=== PATIENT | male | born 1965 | race Caucasian/White ===

== ENCOUNTER → 2020-06-14 13:30 | Outpatient (BNVA) | payer BC, SELFPAY | PROVIDERS: PCP Student in an Organized Health Care Education/Training Program; Referring Provider Student in an Organized Health Care Education/Training Program; Visit Provider Nurse Practitioner Family | DX: Z76.89 Persons encountering health services in other specified circumstances (principal) ==

== ENCOUNTER 2020-06-15 10:17 | Outpatient (REF) | payer BC, SELFPAY ==
[2020-06-15 10:47] LABS: Hematocrit 45.9 % (42-52); Hemoglobin 14.5 g/dl (14.0-18.0); Mean Corpuscular HGB Conc 31.6 g/dl (31.0-36.0); Mean Corpuscular Volume 91.8 fL (80-98); Mean Platelet Volume 10.4 fL (9.4-12.4); Platelet Count 223 X10*3/uL (160-400); Red Cell Distribution Width 12.6 % (11.0-16.0); White Blood Count 6.3 X10*3/uL (4.8-10.8)
[2020-06-15 11:12] LABS: Alanine Aminotransferase 27 U/L (0-40); Albumin Level 4.2 g/dL (3.5-5.0); Alkaline Phosphatase 77 U/L (39-117); Anion Gap 13 (12-20); Aspartate Amino Transferase 15 U/L (5-37); Blood Urea Nitrogen 19 mg/dL (9-16); Carbon Dioxide 30 mmol/L (22-29); Chloride 99 mmol/L (96-108); Estimated Glomerular Filt Rate > 60; Glucose Random 345 mg/dL (60-115); Potassium 4.5 mmol/l (3.3-5.1); Sodium 137 mmol/L (135-145); Total Protein 6.5 g/dL (6.5-8.0)
== END 2020-06-15 10:18 | disposition home or self-care (01) ==
LOC: HO.LAB 10:17
PROVIDERS: PCP Student in an Organized Health Care Education/Training Program; Visit Provider Nurse Practitioner Family
DX: Z12.11 Encounter for screening for malignant neoplasm of colon (principal)
CPT/HCPCS: 36415; 80053; 85027

== ENCOUNTER 2020-08-13 06:51 | Day surgery (SDC) | payer BC, SELFPAY ==
[2020-08-02 14:40] VITALS: BMI 30.4
--- NOTE | 2020-08-12 10:02 | P.CONAN_ITS ---
HPI - Anesthesia Eval Consult details Narrative: 54yo M for Colonoscopy [facility] Past Medical History Medical History Diabetes mellitus History of 2019 novel coronavirus disease (COVID-19) HTN (hypertension) Hypercholesteremia Family History Family History Father Diabetes Mother No problems noted. Surgical History Surgical History Hx of vasectomy Social History Social History Household Members: Significant Other Alcohol intake: current Alcohol intake frequency: holidays/special occasions only Smoking Status: Never smoker Use of substances other than those prescribed or required for medical reasons: No Advance Directives: No Advance Directives Information Provided: No Advance Directives on File: No Meds Allergies Allergy/AdvReac Type Severity Reaction Status Date / Time No Known Allergies Allergy Verified 06/14/20 13:32 Home Medications Medication Instructions Recorded Confirmed Type aspirin 81 mg tablet,delayed 81 mg PO DAILY 06/14/20 08/02/20 History release glipizide 10 mg tablet 10 mg PO TID tab 06/14/20 08/02/20 History insulin glargine 100 unit/mL 10 unit SUBCUT QPM 06/14/20 08/02/20 History subcutaneous solution lisinopril 10 mg tablet 10 mg PO DAILY 06/14/20 08/02/20 History metformin 1,000 mg tablet 1,000 mg PO BID 06/14/20 08/02/20 History simvastatin 20 mg tablet 20 mg PO BEDTIME 06/14/20 08/02/20 History Exam Exam Date and Time: August 12, 2020 1002 Height,Weight and Vital Signs: Height 5 ft 5 in Weight 83.007 kg Pertinent Lab Results Pertinent Lab Results: Laboratory Tests 06/15/20 06/15/20 10:29 10:29 WBC 6.3 Hgb 14.5 Hct 45.9 Plt Count 223 Sodium 137 Potassium 4.5 Chloride 99 Carbon Dioxide 30 H BUN 19 H Creatinine 0.87 Assessment and Plan Assessment Anesthesia Assessment: Chart Reviewed
[2020-08-13 08:06] VITALS: BP 135/85; PULSE 83; RESP 18; TEMP 36.1; O2SAT 99
[2020-08-13 08:09] LABS: Glucose, Whole Blood 175 mg/dL (60-115)
[2020-08-13] MEDS: Lactated Ringers 1,000 ML 100 ML IVCONT (08:29)
--- NOTE | 2020-08-13 08:30 | P.OP_ITS ---
Operative Note Operative Note Date of Service: 08/13/20 Narrative: Pre-op diagnosis: Colon cancer screening Post-op diagnosis: other (Diverticulosis, hemorrhoids) Procedure: COLONOSCOPY TILL CECUM Consent: Indications for the procedure and potential complications of bleeding, perforation, reaction to medications and missed diagnosis were discussed with the patient and informed consent was obtained. Instrument: Olympus PCF H 190 L variable stiffness pediatric colonoscope Monitoring: Vital signs and clinical assessment, intermittent blood pressure monitoring, continuous EKG monitoring, Pulse oximetry and Carbon Dioxide monitoring were done throughout the procedure. Colon withdrawl time was 25 minutes. Procedure: The patient was placed in the left lateral decubitis position and pre-procedure medications were administered. After a digital rectal examination of the ano-rectum, the video colonoscope was inserted into the rectum and advanced through the colon to the cecum. The colonoscope was slowly withdrawn in a retrograde panoramic fashion and the colon mucosa was carefully examined including a retroflexed view of the rectum. Findings and interventions are described below. Procedure Difficulty: Without difficulty Findings: Terminal Ileum: Not evaluated Cecum: Normal Ascending Colon: Normal Transverse Colon: Normal Descending Colon: Normal Sigmoid Colon: Moderate diverticulosis Rectum: Normal Ano-rectum: Moderate internal hemorrhoids Colon preparation: Good after some irrigation Impression and Post Procedure Diagnosis: Colonoscopy Findings: No polyps were detected. Moderate diverticulosis seen in the sigmoid colon Moderate hemorrhoids on retroflexed exam. Plan: Patient has an appointment on 08/30/20 in the [facility] with Marilu Underwood FNP- BC. Repeat Colonoscopy in 10 years. Above findings were reviewed with the patient and diverticulosis handout was given in the discharge area Surgeon: Jackelyn Norton MD Anesthesia: MAC (Dr Rwoe & Dr Barrett) Estimated blood loss (mL): 0 Pathology: none sent Condition: stable Disposition: PACU
--- NOTE | 2020-08-13 08:30 | MHC.SHP ---
Pre-Procedural Eval Section A The patient is an INPATIENT: No The History & Physical has been completed within 30 days and I have reviewed it.: No Section B Chief Complaint: screening Details of Present Illness: 54 years old male here today for pre-colonoscopy screening, This is his first colonoscopy. He was scheduled for one couple years ago however never had one done. Patient reports that he has been feeling well. He denies any abdominal pain, discomfort, bloating, diarrhea, constipation, melena, nausea or vomiting. Denies any CP, PND, SOB with or without exertion. Denies any sleep apnea or any other respiratory issues. Reports that he is a diabetic and has no issues takes his medications as prescribed. Denies any family history of colon cancer. Denies having any surgeries, except for dental minor surgeries with local anesthesia use. Patient has no allergies,never had any infectious diseases like hepatitis A, B HIV or tuberculosis. Relevant Family History (Specify if Yes): No Relevant Social History: None Present Medications: see Short Stay Collaborative assessment Medical History: Significant History (Diabetes mellitus HTN (hypertension) Hypercholesteremia) Allergies: Allergies Allergy/AdvReac Type Severity Reaction Status Date / Time No Known Allergies Allergy Verified 06/14/20 13:32 Review of Systems Sugical H&P ROS: Negative: Constitution, Cardiovascular, Respiratory and Gastrointestinal Exam Surgical H&P Exam: Normal: Heart, Normal: Lungs, Normal: Extremities and Normal: Abdomen Plan Diagnosis/Plan: Unchanged I have reviewed the history and physical and performed a pertinent physical examination on my patient. No changes have occurred unless specified.
--- NOTE | 2020-08-13 08:31 | P.CONAN_ITS ---
[facility] Past Medical History Medical History Diabetes mellitus History of 2019 novel coronavirus disease (COVID-19) HTN (hypertension) Hypercholesteremia Family History Family History Father Diabetes Mother No problems noted. Surgical History Surgical History Hx of vasectomy Social History Social History Household Members: Significant Other Alcohol intake: current Alcohol intake frequency: holidays/special occasions only Smoking Status: Never smoker Use of substances other than those prescribed or required for medical reasons: No Advance Directives: No Advance Directives Information Provided: No Advance Directives on File: No Meds Allergies Allergy/AdvReac Type Severity Reaction Status Date / Time No Known Allergies Allergy Verified 06/14/20 13:32 Home Medications Medication Instructions Recorded Confirmed Type aspirin 81 mg tablet,delayed 81 mg PO DAILY 06/14/20 08/02/20 History release glipizide 10 mg tablet 10 mg PO TID tab 06/14/20 08/02/20 History insulin glargine 100 unit/mL 10 unit SUBCUT QPM 06/14/20 08/02/20 History subcutaneous solution lisinopril 10 mg tablet 10 mg PO DAILY 06/14/20 08/02/20 History metformin 1,000 mg tablet 1,000 mg PO BID 06/14/20 08/02/20 History simvastatin 20 mg tablet 20 mg PO BEDTIME 06/14/20 08/02/20 History Exam Exam Date and Time: August 13, 2020830 Height,Weight and Vital Signs: Height 5 ft 5 in Weight 83.007 kg Last Vital Signs Temp 97.0 F 08/13/20 08:06 Pulse 83 08/13/20 08:06 Resp 18 08/13/20 08:06 BP 135/85 08/13/20 08:06 Pulse Ox 99 08/13/20 08:06 Pertinent Lab Results Pertinent Lab Results: Laboratory Tests 08/13/20 08:03 POC Glucose 175 H Airway Mallampati Class: I TM Dist: >3cm Neck ROM: Full Heart: RRR Lungs: CTA
[2020-08-13 09:27] VITALS: BP 104/70; PULSE 76; RESP 16; TEMP 36.2; O2SAT 93
[2020-08-13 09:29] VITALS: O2SAT 95
[2020-08-13 09:42] VITALS: BP 123/91; PULSE 83; RESP 18; O2SAT 99
[2020-08-13 09:50] VITALS: BP 122/51; PULSE 78; RESP 18; O2SAT 100
--- NOTE | 2020-08-14 09:47 | HO.POSTANES ---
Post Anesthesia Evaluation Post Anesthesia Evaluation Anesthesia: Monitored Mental Status: Awake Pain Control: Satisfactory Nausea/Vomiting: None Hydration: Adequate Anesthesia-Related Issues: No Anes. Related Issues
== END 2020-08-13 10:25 | disposition home or self-care (01) ==
PROVIDERS: PCP Student in an Organized Health Care Education/Training Program; Visit Provider Internal Medicine Gastroenterology
PROC: 0DJD8ZZ Inspection of Lower Intestinal Tract, Via Natural or Artificial Opening Endoscopic (ICD-10-PCS; CPT 45378; principal; 2020-08-13 08:40)
DX: Z12.11 Encounter for screening for malignant neoplasm of colon (principal); K57.30 Diverticulosis of large intestine without perforation or abscess without bleeding; K64.8 Other hemorrhoids; I10 Essential (primary) hypertension; E11.9 Type 2 diabetes mellitus without complications; Z86.19 Personal history of other infectious and parasitic diseases; Z79.4 Long term (current) use of insulin; Z79.82 Long term (current) use of aspirin; Z79.899 Other long term (current) drug therapy
CPT/HCPCS: 45378; 82947

== ENCOUNTER → 2020-08-30 14:11 | Outpatient (BNVA) | payer BC, SELFPAY | PROVIDERS: PCP Student in an Organized Health Care Education/Training Program; Visit Provider Nurse Practitioner Family | DX: Z76.89 Persons encountering health services in other specified circumstances (principal) ==

== ENCOUNTER → 2020-09-27 14:47 | Outpatient (BNVA) | payer BC, SELFPAY | PROVIDERS: PCP Student in an Organized Health Care Education/Training Program; Visit Provider Nurse Practitioner Family ==

== ENCOUNTER 2023-04-08 08:01 | Outpatient (REF) | payer BC, SELFPAY ==
--- NOTE | ~2023-04-08 | CT_ITS ---
EXAMINATION: CT ABDOMEN WITH CONTRAST CLINICAL INFORMATION: Left upper quadrant pain. COMPARISON: Abdominal ultrasound dated 10/22/2005. TECHNIQUE: Contiguous axial thin section helical images of the abdomen were performed following the administration of oral contrast and mL of Omnipaque 350 intravenous contrast. The data set was reformatted in the coronal and sagittal planes and reviewed on an independent workstation. This CT examination was performed using dose optimization techniques as appropriate, variously including the following: *Automated exposure control *Adjustment of mA and/or kV according to patient size (this includes techniques or standardized protocols for targeted exams where dose is matched to indication/reason for exam; i.e. extremities or head) *Use of iterative reconstruction technique DLP: 242 mGy-cm FINDINGS: LUNG BASES: The lung bases are grossly clear. LIVER, GALLBLADDER, BILIARY TREE: The liver is normal in size, shape, and attenuation. No focal hepatic lesion or biliary ductal dilatation is present. The gallbladder is unremarkable with no evidence of radiopaque gallstones, gallbladder wall thickening, or pericholecystic inflammatory changes. PANCREAS: Unremarkable. SPLEEN: Unremarkable. ADRENAL GLANDS: Unremarkable. KIDNEYS AND URETERS: The kidneys are normal in size, shape, and attenuation. No hydronephrosis or hydroureter or calculi seen. No perinephric stranding. GASTROINTESTINAL TRACT: The small and large bowel are unremarkable. The vermiform appendix is not included in the [id number]. ABDOMINAL WALL: There is a small fat-containing umbilical hernia. LYMPH NODES: Normal. VASCULAR: Unremarkable. OSSEOUS STRUCTURES: There is multi-level marked thoracolumbar spondylosis, with an appearance suggesting possible DISH (diffuse idiopathic skeletal hyperostosis). No acute or aggressive osseous abnormality is seen. CT/CT abdomen w IV con IMPRESSION: 1. No bowel obstruction, free intraperitoneal air or abscess is seen within the upper abdomen. 2. There is no abdominal mass, free fluid lymphadenopathy. 3. No urinary calculus or obstruction is seen within the upper abdomen. 4. There is a small fat-containing umbilical hernia. 5. Skeletal findings suggest possible DISH. Fleischner Society guidelines were followed.
[2023-04-08] MEDS: iohexoL 350 MG/ML 75 ML INFUS..BTL 85 ML IV (10:03)
[2023-04-09 07:16] LABS: Creatinine POC 0.6 mg/dL (0.5-1.4); GFR POC > 60
== END 2023-04-08 08:02 | disposition home or self-care (01) ==
LOC: HO.CT 08:01
PROVIDERS: PCP Family Medicine; Visit Provider Family Medicine
DX: R10.12 Left upper quadrant pain (principal)
CPT/HCPCS: 74160; 82565; Q9967

== ENCOUNTER 2023-07-02 08:50 | Outpatient (REF) | payer BC, SELFPAY ==
[2023-07-02 14:32] LABS: MANUAL DIFF FLAG NO
[2023-07-02 14:38] LABS: Basophils Percent Auto 0.6 % (0-2); Eosinophils Absolute Auto 0.1 X10*3/uL (0.0-0.4); Eosinophils Percent Auto 0.9 % (0-4); Hematocrit 47.1 % (42.0-52.0); Hemoglobin 15.2 g/dl (14.0-18.0); Imm Gran Abs Auto 0.03 X10*3/uL (0.00-0.03); Imm Gran Pct Auto 0.4 % (0.0-0.4); Lymphocytes Absolute Auto 2.1 X10*3/uL (1.2-4.9); Mean Corpuscular HGB Conc 32.3 g/dl (31.0-36.0); Mean Corpuscular Hemoglobin 28.8 pg (27.0-33.0); Mean Corpuscular Volume 89.2 fL (80.0-98.0); Mean Platelet Volume 10.3 fL (9.4-12.4); Monocytes Absolute Auto 0.5 X10*3/uL (0.1-1.2); Monocytes Percent Auto 7.7 % (2-11); Neutrophils Absolute Auto 4.1 x10*3/uL (2.0-8.3); Neutrophils Percent Auto 60.4 % (45-73); Platelet Count 266 X10*3/uL (160-400); Red Blood Count 5.28 X10*6/uL (4.60-5.80); White Blood Count 6.8 X10*3/uL (4.8-10.8)
[2023-07-02 15:05] LABS: Alanine Aminotransferase 27 U/L (0-40); Albumin Level 4.3 g/dL (3.5-5.0); Alkaline Phosphatase 60 U/L (39-117); Anion Gap 12 (12-20); Aspartate Amino Transferase 17 U/L (5-37); Bilirubin Total 1.2 mg/dL (0.0-1.0); Blood Urea Nitrogen 14 mg/dL (9-16); Calcium 10.1 mg/dL (8.4-10.2); Carbon Dioxide 28 mmol/L (22-29); Chloride 104 mmol/L (96-108); Cholesterol 131 mg/dL (<200); Estimated Glomerular Filt Rate > 60; Glucose Random 115 mg/dL (60-115); HDL Cholesterol 54 mg/dL (>40); LDL Cholesterol Calculated 64 mg/dL (<100); Sodium 140 mmol/L (135-145); Total Protein 7.3 g/dL (6.5-8.0); Triglycerides 66 mg/dL (<150)
[2023-07-02 15:26] LABS: Creatinine Urine 144.21 mg/dL; Microalbum/Creatinine Ratio Ur 5.5 ug/mg cr (<30)
[2023-07-02 15:38] LABS: Folate 12.5 ng/mL (> or = 4.0); Vitamin B12 269 pg/mL (200-900)
[2023-07-03 03:31] LABS: HIV AB/AG Nonreactive (Nonreactive); HIV Num 1 0.06 S/CO (0.00-0.99); ~HepC Num1 0.11 S/CO (0.00-0.79); ~Hepatitis C Antibody Nonreactive (Nonreactive)
== END 2023-07-02 08:51 | disposition home or self-care (01) ==
LOC: HO.CHCLDS 08:50
PROVIDERS: Visit Provider Family Medicine
DX: E11.9 Type 2 diabetes mellitus without complications (principal); Z79.4 Long term (current) use of insulin; Z13.9 Encounter for screening, unspecified
CPT/HCPCS: 36415; 80053; 80061; 82043; 82570; 82607; 82746; 85025; 86803; 87389

== ENCOUNTER 2023-11-12 10:22 | Outpatient (REF) | payer BC, SELFPAY ==
[2023-11-15 08:30] LABS: HBS Num1 0.16 mIU/mL (0-7.99); ~Hepatitis B Surface Antibody NONREACTIVE (Nonreactive)
== END 2023-11-12 10:23 | disposition home or self-care (01) ==
LOC: HO.CHCLDS 10:22
PROVIDERS: Visit Provider Family Medicine
DX: E11.9 Type 2 diabetes mellitus without complications (principal); Z79.4 Long term (current) use of insulin
CPT/HCPCS: 36415; 86706

== ENCOUNTER 2024-05-26 09:48 | Outpatient (REF) | payer BC, SELFPAY ==
[2024-05-26 14:11] LABS: MANUAL DIFF FLAG NO
[2024-05-26 14:15] LABS: Basophils Absolute Auto 0.1 X10*3/uL (0.0-0.2); Basophils Percent Auto 0.8 % (0-2); Eosinophils Absolute Auto 0.1 X10*3/uL (0.0-0.4); Eosinophils Percent Auto 1.5 % (0-4); Hematocrit 47.6 % (42.0-52.0); Hemoglobin 15.5 g/dl (14.0-18.0); Imm Gran Abs Auto 0.05 X10*3/uL (0.00-0.03); Imm Gran Pct Auto 0.8 % (0.0-0.4); Lymphocytes Absolute Auto 2.1 X10*3/uL (1.2-4.9); Mean Corpuscular HGB Conc 32.6 g/dl (31.0-36.0); Mean Corpuscular Hemoglobin 29.4 pg (27.0-33.0); Mean Corpuscular Volume 90.3 fL (80.0-98.0); Mean Platelet Volume 10.1 fL (9.4-12.4); Monocytes Absolute Auto 0.5 X10*3/uL (0.1-1.2); Monocytes Percent Auto 8.9 % (2-11); Neutrophils Absolute Auto 3.2 x10*3/uL (2.0-8.3); Platelet Count 282 X10*3/uL (160-400); Red Blood Count 5.27 X10*6/uL (4.60-5.80); White Blood Count 6.1 X10*3/uL (4.8-10.8)
[2024-05-26 14:50] LABS: Alanine Aminotransferase 29 U/L (0-40); Albumin Level 4.5 g/dL (3.5-5.0); Alkaline Phosphatase 61 U/L (39-117); Anion Gap 10 (12-20); Aspartate Amino Transferase 18 U/L (5-37); Blood Urea Nitrogen 14 mg/dL (9-16); Calcium 10.4 mg/dL (8.4-10.2); Carbon Dioxide 31 mmol/L (22-29); Chloride 102 mmol/L (96-108); Cholesterol 175 mg/dL (<200); Estimated Glomerular Filt Rate > 60; Glucose Random 136 mg/dL (60-115); HDL Cholesterol 61 mg/dL (>40); LDL Cholesterol Calculated 99 mg/dL (<100); Potassium 4.5 mmol/L (3.3-5.1); Sodium 138 mmol/L (135-145); Total Protein 7.3 g/dL (6.5-8.0); Triglycerides 79 mg/dL (<150)
[2024-05-26 15:08] LABS: Folate 11.2 ng/mL (> or = 4.0); Vitamin B12 373 pg/mL (200-900)
== END 2024-05-26 09:49 | disposition home or self-care (01) ==
LOC: HO.CHCLDS 09:48
PROVIDERS: Visit Provider Family Medicine
DX: E11.9 Type 2 diabetes mellitus without complications (principal); Z79.4 Long term (current) use of insulin
CPT/HCPCS: 36415; 80053; 80061; 82607; 82746; 84443; 85025

== ENCOUNTER 2025-04-12 12:00 | Outpatient (REF) | payer OTHER, SELFPAY ==
--- OUTSIDE RECORDS SUMMARY | 2025-04-12 11:30 | XMS_ITS | Encounter Summary ---
Author Organization [employer] Address [address] [place] [address] [address] [place] [address] Care Team Providers Care Acoustic Intelligence Specialist Name Role Phone Gema Barber MD Primary Care Provider [phone] Reason for Referral * Consultation (Routine) - Authorized Specialty Diagnoses / Procedures Referred By Delia goldman Referred To Contact Optometry Diagnoses Type 2 diabetes mellitus without complication, with long-term current use of insulin (CMS/HCC) Gema Barber MD [address] [place] [address] Phone: tel: fax: [facility] OPTOMETRY [address] [place] [address] Phone: tel: fax: Referral ID Status Reason Start Date Expiration Date Visits Requested Visits Authorized [id number] Authorized Consult and Treat 04/12/2025 04/12/2026 1 1 * Medications - Closed Specialty Diagnoses / Procedures Referred By Delia t Referred To Contact Diagnoses Type 2 diabetes mellitus without complication, with long-term current use of insulin ([facility]) Gema Barber MD [address] [place] [address] Phone: tel: fax: Referral ID Status Reason Start Date Expiration Date Visits Re quested Visits Authorized [id number] Closed 1 1 * Consultation (Routine) - Authorized Specialty Diagnoses / Procedures Referred By Contac t Referred To Contact Dermatology / Family Medicine Diagnoses Gema Jain MD [address] [place] [address] Phone: tel: fax: Rosendo Garrison MD [address] [place] [address] Phone: tel: fax: Referral ID Status Reason Start Date Expiration Date Visits Requested Visits Authorized [id number] Authorized Consult and Treat 04/12/2025 04/12/2026 1 1 Encounter Details Date Type Department Care Team (Late st Contact Info) Description 04/12/2025 11:30 AM EDT Office Visit [facility] MED [facility] PEDS [address] [place] [address] Gema Barber MD [address] [place] [address] Type 2 diabetes mellitus without complication, with long-term current use of insulin (CMS/HCC) (Primary Dx); Boils of multiple sites; Rash Social History Tobacco Use Types Packs/Day Years Used Date Smoking Tobacco: Never Passive Smoke Exposure: Never Smokeless Tobacco: Never Alcohol Use Standard Drinks/Week Comments Never 0 (1 standard drink = 0.6 oz pur e alcohol) Alcohol Answer Date Recorded Frequency of Alcohol Consumption Not on file 05/26/2024 Average Number of Drinks Not on file 024 Frequency of Binge Drinking Not on file 05/16 Score 0 05/26/2024 Depression Answer Date Recorded Patient Health Questionnaire-9 Score 0 04/12/2025 Patient Health Questionnaire-9 Score 0 04/12/2025 Last PHQ-9: Questionnaire Data Not on file 0 04/12/2025 Housing Stability Answer Date Recorded What is your housing situation today? I have arely whalen 04/12/[address] you li ve. Do you have problems with any of the following? None of the above 04/12/2025 Food Insecurity Answer Date Recorded Within the past 12 months, y ou worried that your food would run out before you got money to buy more: Never True 04/12/2025 Within the past 12 months,th e food you bought just didn't last and you didn't have enough money to get more: Never True Transportation Answer Date Recorded In the past 12 months, has l ack of transportation kept you from medical appts, meetings, work or from getting things needed for daily living? No 04/12/2025 Utilities Answer Date Recorded In the past 12 months, has t he electric, gas, oil or water company threatened to shut off services in your home? No 04/12/2025 Depression Answer Date Recorded Patient Health Questionnaire-2 Score 0 04/12/2025 Internet Access Answer Date Recorded Internet Access Q1 Yes 04/12/2025 Internet Access Q2 Not on file 04/12/2025 Sex and Gender Information Value Date Recorded Sex Assigned at Male 06/15/2022 10:17 AM EDT Legal Sex Male 10:17 AM EDT Gender Identity Male 06/15/2022 10:17 AM EDT Sexual Orientation Straight 03/19/2023 8: 20 AM EDT documented as of this encounter Functional Status * Over the past 2 weeks, how often have you been bothered by any of the following problems? Question Answer Date of Assessment Author Patient Health Questionnaire -2 Score 0 04/12/2025 11:22 AM EDT Steven Rendon MA * Little interest or pleasure in doing things Answer Date of Assessment Author Not at all 04/12/2025 11:22 AM EDT Steven Rendon MA * Feeling down, depressed, or hopeless Answer Date of Assessment Author Not at all 04/12/2025 11:22 AM EDT Steven Rendon MA * Trouble falling or staying asleep, or sleeping too much Answer Date of Assessment Author Not at all 04/12/2025 11:22 AM EDT Steven Rendon MA * Feeling tired or having little energy Answer Date of Assessment Author Not at all 04/12/2025 11:22 AM EDT Steven Rendon MA * Poor appetite or overeating Answer Date of Assessment Author Not at all 04/12/2025 11:22 AM EDT Steven Rendon MA * Feeling bad about yourself - or that you are a failure or have let yourself or your family down Answer Date of Assessment Author Not at all 04/12/2025 11:22 AM EDT Steven Rendon MA * Trouble concentrating on things, such as reading the newspaper or watching television Answer Date of Assessment Author Not at all 04/12/2025 11:22 AM EDT Steven Rendon MA * Moving or speaking so slowly that other people could have noticed? Or the opposite - being so fidgety or restless that you have been moving around a lot more than usual. Answer Date of Assessment Author Not at all 04/12/2025 11:22 AM EDT Steven Rendon MA * Thoughts that you would be better off or hurting yourself in some way Answer Date of Assessment Author Not at all 04/12/2025 11:22 AM EDT Steven Rendon MA * Patient Health Questionnaire-9 Score Answer Date of Assessment Author 0 04/12/2025 11:22 AM EDT Steven Rendon MA documented as of this encounter Plan of Treatment Upcoming Encounters Date Type Department Care Team (Late st Contact Info) Description 06/05/2025 10:30 AM EDT Office Visit [facility] MED & PEDS [address] [place] [address] Rosendo Garrison MD [address] [place] [address] 06/22/2025 9:00 AM EST Office Visit [facility] MED & PEDS [address] [place] [address] Gema Barber MD [address] [place] [address] Scheduled Orders Name Type Priority Associated Diagnoses Orde r Schedule MRSA Nasal Screen Microbiology Routine Boils of multiple sites Expected: 04/12/2025 (Approximate), Expires: 04/12/2026 CBC auto differential Lab Routine Type 2 diabetes mellitus without complication, with long-term current use of insulin ([facility]) Expected: 04/12/2025 (Approximate), Expires: 04/12/2026 Comprehensive Metabolic Panel Lab Routine Type 2 diabetes mellitus without complication, with long-term current use of insulin ([facility]) Expected: 04/12/2025 (Approximate), Expires: 04/12/2026 Lipid Panel, Standard Lab Routine Type 2 diabetes mellitus without complication, with long-term current use of insulin (CMS/HCC) Expected: 04/12/2025 (Approximate), Expires: 04/12/2026 Albumin, Random Urine W/Creatinine Lab Routine Type 2 diabetes mellitus without complication, with long-term current use of insulin ([facility]) Expected: 04/12/2025 (Approximate), Expires: 04/12/2026 Vitamin B12 (Cobalamin) and Folate Panel, Serum Lab Routine Type 2 diabetes mellitus without complication, with long-term current use of insulin ([facility]) Expected: 04/12/2025 (Approximate), Expires: 04/12/2026 TSH W/Reflex to FT4 Lab Routine Type 2 diabetes mellitus without complication, with long-term current use of insulin ([facility]) Expected: 04/12/2025 (Approximate), Expires: 04/12/2026 Scheduled Referrals Name Type Priority Associated Diagnoses Orde r Schedule [facility] Referral Routine Rash Expected: 04/12/2025 (Approximate), Expires: 04/12/2026 Referral to [facility] Eye Care Outpatient Referral Routine Type 2 diabetes mellitus without complication, with long-term current use of insulin ([facility]) Expected: 04/12/2025 (Approximate), Expires: 04/12/2026 documented as of this encounter Procedures Procedure Name Priority Date/Time Associated Diagnosis Comments POCT GLYCATED HEMOGLOBIN, TOTAL Routine 04/12/2025 11:49 AM EDT Type 2 diabetes mellitus without complication, with long-term current use of insulin ([facility]) POCT GLUCOSE Routine 04/12/2025 11:46 AM EDT Type 2 diabetes mellitus without complication, with long-term current use of insulin ([facility]) documented in this encounter Results * (ABNORMAL) POCT HGB A1C (04/12/2025 11:49 AM EDT) Hemoglobin A1C 13.3(A) 4.0 - 5.7 % QC Media Lot # [id number] Lot# Expiration Date 213,[id number] Blood 04/12/2025 11:4 9 AM EDT Gema Barber MD POINT OF CARE TEST ENTER/EDIT ORDERABLES Final Result * (ABNORMAL) POCT Glucose (04/12/2025 11:46 AM EDT) Glucose Blood, POC 219(A) 60 - 200 mg/dL [employer] Media Lot # [id number] Lot# Expiration Date 288,075 Blood Capillary blood specimen / Unknown 04/12/2025 11:46 AM EDT Gema Barber MD POINT OF CARE TEST ENTER/EDIT ORDERABLES Final Result documented in this encounter Visit Diagnoses Diagnosis Type 2 diabetes mellitus without complication, with long-term current use of insulin ([facility])- Primary Boils of multiple sites Rash Rash and other nonspecific skin eruption documented in this encounter Additional Health Concerns Assessment Noted Time PHQ-9 Depression Total Score: 0 04/12/20 25 11:22 AM EDT documented as of this encounter Care Teams Acoustic Intelligence Specialist Relationship Specialty Start Date End Date Gema Barber MD [address] [place] [address] PCP - General Family Medicine 05/23/21 documented as of this encounter
--- OUTSIDE RECORDS SUMMARY | 2025-04-12 13:04 | XMS_ITS | Encounter Summary ---
Author Organization [employer] Address [address] [facility] [address] [place] [address] Care Team Providers Care Tucking Machine Operator Name Role Phone Gema Barber MD Primary Care Provider [phone] Reason for Visit * Reason Onset Date Comments Letter for School/Work 10/28/2023 Medication Question 10/28/2023 Encounter Details Date Type Department Care Team ([facility] st Contact Info) Description 10/28/2023 Telephone [facility] [address] [place] [address] Gema Barber MD [address] [place] [address] Letter for School/Work; Medication Question Social History Tobacco Use Types Packs/Day Years Used Date Smoking Tobacco: Never Passive Smoke Exposure: Never Smokeless Tobacco: Never Alcohol Use Standard Drinks/Week Comments Never 0 (1 standard drink = 0.6 oz pur e alcohol) Depression Answer Date Recorded Patient Health Questionnaire-9 Score 0 10/08/2023 Patient Health Questionnaire-9 Score 0 10/08/2023 Last PHQ-9: Questionnaire Data Not on file 0 10/08/2023 Housing Stability Answer Date Recorded What is your housing situation today? I have arely whalen 10/01/[address] you li ve. Do you have problems with any of the following? None of the above 10/01/2023 Food Insecurity Answer Date Recorded Within the past 12 months, y ou worried that your food would run out before you got money to buy more: Never True 10/01/2023 Within the past 12 months,th e food you bought just didn't last and you didn't have enough money to get more: Never True Transportation Answer Date Recorded In the past 12 months, has l ack of transportation kept you from medical appts, meetings, work or from getting things needed for daily living? No 10/01/2023 Utilities Answer Date Recorded In the past 12 months, has t he electric, gas, oil or water company threatened to shut off services in your home? No 10/01/2023 Depression Answer Date Recorded Patient Health Questionnaire-2 Score 0 10/08/2023 Sex and Gender Information Value Date Recorded Sex Assigned at Male 06/15/2022 10:17 AM EDT Legal Sex Male 10:17 AM EDT Gender Identity Male 06/15/2022 10:17 AM EDT Sexual Orientation Straight 03/19/2023 8: 20 AM EDT documented as of this encounter Miscellaneous Notes * Telephone Encounter - Moise Castaneda - 10/28/2023 10:42 AM EDT Tc from patient calling to request a alternative medication for Trulicity 4.5 MG/0.5ML solution pen-injector due to being expensive with current insurance and is requesting a restriction letter for work due to being a diabetic documented in this encounter Plan of Treatment Upcoming Encounters Date Type Department Care Team ([facility] st Contact Info) Description 06/05/2025 10:30 AM EDT Office Visit [facility] MED & PEDS [address] [place] [address] Rosendo Garrison MD [address] [place] [address] 06/22/2025 9:00 AM EST Office Visit [facility] MED & PEDS [address] [place] [address] Gema Barber MD [address] [place] [address] documented as of this encounter Visit Diagnoses Not on filedocumented in this encounter Additional Health Concerns Assessment Noted Time PHQ-9 Depression Total Score: 0 10/08/19 8:35 AM EST documented as of this encounter Care Teams Tucking Machine Operator Relationship Specialty Start Date End Date Gema Barber MD [address] [place] [address] PCP - General Family Medicine 05/23/21 documented as of this encounter
--- OUTSIDE RECORDS SUMMARY | 2025-04-12 13:04 | XMS_ITS | Encounter Summary ---
Author Organization [facility] Address [address] [place] [address] 7t [place] [address] Care Team Providers Care Pool Player Name Role Phone Gema Barber MD Primary Care Provider [phone] Encounter Details Date Type Department Care Team (Latest Contact Info) Description 07/21/2019 Abstract [facility] CONVERSIONS Dental, Provider, DDS Social History Tobacco Use Types Packs/Day Years Used Date Smoking Tobacco: Never Assessed Sex and Gender Information Value Date Recorded Sex Assigned at Male 06/15/2022 10:17 AM EDT Legal Sex Male 10:17 AM EDT Gender Identity Male 06/15/2022 10:17 AM EDT Sexual Orientation Straight 03/19/2023 8: 20 AM EDT documented as of this encounter Plan of Treatment Upcoming Encounters Date Type Department Care Team ( st Contact Info) Description 06/05/2025 10:30 AM EDT Office Visit [facility] MED & PEDS [address] [place] [address] Rosendo Garrison MD 505 [place] [address] 06/22/2025 9:00 AM EST Office Visit [facility] MED & PEDS [address] [place] [address] Gema Barber MD [address] [place] [address] documented as of this encounter Visit Diagnoses Not on filedocumented in this encounter Care Teams Pool Player Relationship Specialty Start Date End Date Gema Barber MD [address] [place] [address] PCP - General Family Medicine 05/23/21 documented as of this encounter
--- OUTSIDE RECORDS SUMMARY | 2025-04-12 13:05 | XMS_ITS | Encounter Summary ---
Author Organization [facility] Address [address] [place] [address] 7t [place] [address] Care Team Providers Care Engineer Second Assistant Name Role Phone Gema Barber MD Primary Care Provider [phone] Encounter Details Date Type Department Care Team (Latest Contact Info) Description 11/06/2021 Abstract [facility] CONVERSIONS Dental, Provider, DDS Social History Tobacco [...] Description 06/05/2025 10:30 AM EDT Office Visit [facility] [place] [facility] MED & PEDS [address] [place] [address] Rosendo Garrison MD 505 [place] [address] 06/22/2025 9:00 AM EST Office Visit [facility] MED & PEDS [address] [place] [address] Gema Barber MD [address] [place] [address] documented as of this encounter Visit Diagnoses Not on filedocumented in this encounter Care Teams Engineer Second Assistant Relationship Specialty Start Date End Date Gema Barber MD 230 [place] [address] PCP - General Family Medicine 05/23/21 documented as of this encounter
--- OUTSIDE RECORDS SUMMARY | 2025-04-12 13:05 | XMS_ITS | Encounter Summary ---
Author Organization [facility] [employer] Address [address] [facility] 7t [place] [address] Care Team Providers Care Pressing Machine Tender Name Role Phone Gema Barber MD Primary Care Provider [phone] Reason for Visit * Reason Comments Med Refill Encounter Details Date Type Department Care Team ([facility] Contact Info) Description 01/13/2025 Refill [facility] MED & PEDS [address] [place], [place] [phone] Gema Barber MD 505 [place] [address] Social History Tobacco Use Types Packs/Day Years [...] Description 06/05/2025 10:30 AM EDT Office Visit [facility] MED & PEDS [address] [place] [address] Rosendo Garrison MD 505 [place] [address] 06/22/2025 9:00 AM EST Office Visit [facility] MED & PEDS [address] [place] [address] Gema Barber MD 505 [place] [address] documented as of this encounter Visit Diagnoses Not on filedocumented in this encounter Additional Health Concerns Assessment Noted Time PHQ-9 Depression Total Score: 0 10/08/19 24 8:35 AM EST documented as of this encounter Care Teams Pressing Machine Tender Relationship Specialty Start Date End Date Gema Barber MD [address] [place] [address] PCP - General Family Medicine 05/23/21 documented as of this encounter
--- OUTSIDE RECORDS SUMMARY | 2025-04-12 13:05 | XMS_ITS | Encounter Summary ---
Author Organization [employer] Address [address] [place] [address] 7t [place] [address] Care Team Providers Care Air Conditioning Manager Name Role Phone Gema Barber MD Primary Care Provider [phone] Reason for Visit * Reason Comments Med Change Request Encounter Details Date Type Department Care Team ([facility] Contact Info) Description 10/26/2022 Refill [facility]S 505 [place] [address] Gema Barber MD 505 [place] [address] Type 2 diabetes mellitus without complication, with long-term current use of insulin ([facility]) Social History Tobacco Use Types Packs/Day Years Used Date Smoking Tobacco: Never Passive Smoke Exposure: Never Smokeless Tobacco: Never Alcohol Use Standard Drinks/Week Comments Never 0 (1 standard drink = 0.6 oz pur e alcohol) Depression Answer Date Recorded Patient Health Questionnaire-9 Score 10 09/11/2022 Depression Answer Date Recorded Patient Health Questionnaire-2 Score 2 09/11/2022 Sex and Gender Information Value Date Recorded Sex Assigned at Male 06/15/2022 10:17 AM EDT Legal Sex Male 10:17 AM EDT Gender Identity Male 06/15/2022 10:17 AM EDT Sexual Orientation Straight 03/19/2023 8: 20 AM EDT COVID-19 Exposure Response Date Recorded In the last 10 days, have yo u been in contact with someone who was confirmed or suspected to have Coronavirus/COVID-19? No / Unsure 10/23/2022 2:44 PM EST documented as of this encounter Plan of Treatment Upcoming Encounters Date Type Department Care Team ([facility] Contact Info) Description 06/05/2025 10:30 AM EDT Office Visit [facility] MED & PEDS [address] [place] [address] Rosendo Garrison MD 505 [place] [address] 06/22/2025 9:00 AM EST Office Visit [facility] MED & PEDS 505 [place] [address] Gema Barber MD 505 [place] [address] documented as of this encounter Visit Diagnoses Diagnosis Type 2 diabetes mellitus without complication, with long-term current use of insulin ([facility]) documented in this encounter Additional Health Concerns Assessment Noted Time PHQ-9 Depression Total Score: 10 023 9:11 AM EST documented as of this encounter Care Teams Air Conditioning Manager Relationship Specialty Start Date End Date Gema Barber MD [address] [place] [address] PCP - General Family Medicine 05/23/21 documented as of this encounter
--- OUTSIDE RECORDS SUMMARY | 2025-04-12 13:05 | XMS_ITS | Encounter Summary ---
Author Organization [employer] Address [address] [facility] [address] 7t [place] [address] Care Team Providers Care Battery Checker Name Role Phone Gema Barber MD Primary Care Provider [phone] Reason for Visit * Reason Onset Date Comments insurance update 07/27/2024 Encounter Details Date Type Department Care Team ([facility] st Contact Info) Description 07/27/2024 Telephone C [facility] [address] [place] [address] Josemanuel Garrison insurance update Social History Tobacco Use Types Packs/Day Years [...] encounter Miscellaneous Notes * Telephone Encounter - Ginger Zepeda - 07/27/2024 10:04 AM EST Patient has been scheduled for prophy exam xrays in [facility]. Patient [place] [employer] [place] [place]. He believes insurance is changing in the new year. Patient has been informed he must contact office prior to appt to update insurance information prior to dental visit. Patient understood DR documented in this encounter Plan of Treatment Upcoming Encounters Date Type Department Care Team (Late st Contact Info) Description 06/05/2025 10:30 AM EDT Office Visit [facility] [facility] MED & PEDS 505 [place] [address] Rosendo Garrison MD 505 [place] [address] 06/22/2025 9:00 AM EST Office Visit [facility] MED & PEDS 505 [place] [address] Gema Barber MD 505 [place] [address] documented as of this encounter Visit Diagnoses Not on filedocumented in this encounter Additional Health Concerns Assessment Noted Time PHQ-9 Depression Total Score: 0 10/08/19 24 8:35 AM EST documented as of this encounter Care Teams Battery Checker Relationship Specialty Start Date End Date Gema Barber MD [address] [place] [address] PCP - General Family Medicine 05/23/21 documented as of this encounter
--- OUTSIDE RECORDS SUMMARY | 2025-04-12 13:05 | XMS_ITS | Encounter Summary ---
Author Organization [employer] Address [address] [place] [address] 7t [place] [address] Care Team Providers Care Molecular Genetic Pathologist Name Role Phone Gema Barber MD Primary Care Provider [phone] Reason for Visit * Reason Comments Med Refill Encounter Details Date Type Department Care Team ([facility] Contact Info) Description 01/10/2023 Refill [facility] MED & PEDS [address] [place] [address] Gema Barber MD 505 [place] [address] Social History Tobacco Use Types Packs/Day Years [...] Upcoming Encounters Date Type Department Care Team ([facility] Contact Info) Description 06/05/2025 10:30 AM EDT Office Visit [facility] MED & PEDS [address] [place] [address] Rosendo Garrison MD 505 [place] [address] 06/22/2025 9:00 AM EST Office Visit [facility] CHC MED & PEDS [address] [place] [address] Gema Barber MD [address] [place] [address] documented as of this encounter Visit Diagnoses Not on filedocumented in this encounter Additional Health Concerns Assessment Noted Time PHQ-9 Depression Total Score: 10 023 9:11 AM EST documented as of this encounter Care Teams Molecular Genetic Pathologist Relationship Specialty Start Date End Date Gema Barber MD [address] [place] [address] PCP - General Family Medicine 05/23/21 documented as of this encounter
--- OUTSIDE RECORDS SUMMARY | 2025-04-12 13:05 | XMS_ITS | Encounter Summary ---
Author Organization [employer] Address [address] [facility] 7t [place] [address] Care Team Providers Care Cutter First Name Role Phone Gema Barber MD Primary Care Provider [phone] Reason for Visit * Reason Comments Med Change Request Encounter Details Date Type Department Care Team ([facility] Contact Info) Description 06/18/2023 Refill C [facility]EDS [address] [place] [address] Gema Barber MD 505 [place] [address] Type 2 diabetes mellitus without complication, with long-term current use of insulin ([facility]) Social History Tobacco Use Types Packs/Day Years Used Date Smoking Tobacco: Never Passive Smoke Exposure: Never Smokeless Tobacco: Never Alcohol Use Standard Drinks/Week Comments Never 0 (1 standard drink = 0.6 oz pur e alcohol) Depression Answer Date Recorded Patient Health Questionnaire-9 Score 10 09/11/2022 Housing Stability Answer Date Recorded What is your housing situation today? I have arely whalen 06/07/[address] you li ve. Do you have problems with any of the following? None of the above 06/07/2023 Food Insecurity Answer Date Recorded Within the past 12 months, y ou worried that your food would run out before you got money to buy more: Never True 06/07/2023 Within the past 12 months,th e food you bought just didn't last and you didn't have enough money to get more: Never True Transportation Answer Date Recorded In the past 12 months, has l ack of transportation kept you from medical appts, meetings, work or from getting things needed for daily living? No 06/07/2023 Utilities Answer Date Recorded In the past 12 months, has t he electric, gas, oil or water company threatened to shut off services in your home? No 06/07/2023 Depression Answer Date Recorded Patient Health Questionnaire-2 [...] 10:30 AM EDT Office Visit [facility] MED & PEDS 505 [place] [address] Rosendo Garrison MD 505 [place] [address] 06/22/2025 9:00 AM EST Office Visit [facility] MED & PEDS 505 [place] [address] Gema Barber MD 505 [place] [address] documented as of this encounter Visit Diagnoses Diagnosis Type 2 diabetes mellitus without complication, with long-term current use of insulin ([facility]) documented in this encounter Additional Health Concerns Assessment Noted Time PHQ-9 Depression Total Score: 10 023 9:11 AM EST documented as of this encounter Care Teams Cutter First Relationship Specialty Start Date End Date Gema Barber MD [address] [place] [address] PCP - General Family Medicine 05/23/21 documented as of this encounter
--- OUTSIDE RECORDS SUMMARY | 2025-04-12 13:05 | XMS_ITS | Encounter Summary ---
Author Organization [employer] Address [address] [facility] 7t [place] [address] Care Team Providers Care Line Haul Owner Operator Name Role Phone Gema Barber MD Primary Care Provider [phone] Encounter Details Date Type Department Care Team (Latest Contact Info) Description 04/12/2025 Travel Social History Tobacco Use Types Packs/Day Years [...] [facility] MED & PEDS 505 [place] [address] Rosendo Garrison MD 505 [place] [address] 06/22/2025 9:00 AM EST Office Visit [facility] MED & PEDS 505 [place] [address] Gema Barber MD 505 [place] [address] documented as of this encounter Visit Diagnoses Not on filedocumented in this encounter Additional Health Concerns Assessment Noted Time PHQ-9 Depression Total Score: 0 04/12/20 25 11:22 AM EDT documented as of this encounter Care Teams Line Haul Owner Operator Relationship Specialty Start Date End Date Gema Barber MD 230 [place] [address] PCP - General Family Medicine 05/23/21 documented as of this encounter
--- OUTSIDE RECORDS SUMMARY | 2025-04-12 13:05 | XMS_ITS | Encounter Summary ---
Author Organization [employer] Address [address] [facility] 7t [place] [address] Care Team Providers Care Refuse And Recycling Worker Name Role Phone Gema Barber MD Primary Care Provider [phone] Reason for Visit * Reason Onset Date Comments chart prep 04/10/2025 Encounter Details Date Type Department Care Team ([facility] Contact Info) Description 04/10/2025 Telephone [facility] CHC MED & PEDS [address] [place] [address] Gema Barber MD 505 [place] [address] chart prep Social History Tobacco Use Types Packs/Day Years [...] encounter Miscellaneous Notes * Telephone Encounter - Steven Rendon [place] - 04/10/2025 1:55 PM EDT Chart Prep Labs: not done Images: done Referrals: complete Vaccines due: Flu and Hep B Screenings: eye exam and foot exam Overdue care gaps: A1c, Glucose, SDOH, PHQ-9, and Disability screen documented in this encounter Plan of Treatment Upcoming Encounters Date Type Department Care Team (Late st Contact Info) Description 06/05/2025 10:30 AM EDT Office Visit [facility] MED & PEDS [address] [place] [address] Rosendo Garrison MD 505 [place] [address] 06/22/2025 9:00 AM EST Office Visit [facility] MED & PEDS [address] [place] [address] Gema Barber MD 505 [place] [address] documented as of this encounter Visit Diagnoses Not on filedocumented in this encounter Additional Health Concerns Assessment Noted Time PHQ-9 Depression Total Score: 0 10/08/19 24 8:35 AM EST documented as of this encounter Care Teams Refuse And Recycling Worker Relationship Specialty Start Date End Date Gema Barber MD [address] [place] [address] PCP - General Family Medicine 05/23/21 documented as of this encounter
--- OUTSIDE RECORDS SUMMARY | 2025-04-12 13:05 | XMS_ITS | Encounter Summary ---
Author Organization [facility] Address [address] [place] [address] 7t [place] [address] Care Team Providers Care Office Machine Installer Name Role Phone Gema Barber MD Primary Care Provider [phone] Encounter Details Date Type Department Care Team (Latest Contact Info) Description 12/09/2018 Abstract [facility] CONVERSIONS Dental, Provider, DDS Social History Tobacco [...] Description 06/05/2025 10:30 AM EDT Office Visit [facility] MED & PEDS [address] [place] [address] Rosendo Garrison MD 505 [place] [address] 06/22/2025 9:00 AM EST Office Visit [facility] MED & PEDS 505 [place] [address] Gema Barber MD [address] [place] [address] documented as of this encounter Visit Diagnoses Not on filedocumented in this encounter Care Teams Office Machine Installer Relationship Specialty Start Date End Date Gema Barber MD 230 [place] [address] PCP - General Family Medicine 05/23/21 documented as of this encounter
--- OUTSIDE RECORDS SUMMARY | 2025-04-12 13:05 | XMS_ITS | Encounter Summary ---
Author Organization [employer] Address [address] [facility] [address] 7t [place] [address] Care Team Providers Care Manager Home Improvement Name Role Phone Gema Barber MD Primary Care Provider [phone] Encounter Details Date Type Department Care Team ([facility] st Contact Info) Description 06/30/2023 Abstract [facility] [address] [place] [address] Barb Meade Social History Tobacco Use Types Packs/Day Years [...] Description 06/05/2025 10:30 AM EDT Office Visit [facility] MED & PEDS [address] [place] [address] Rosendo Garrison MD 505 [place], [place] [phone] 06/22/2025 9:00 AM EST Office Visit [facility] MED & PEDS 505 [place], [place] [phone] Gema Barber MD 505 [place], [place] [phone] documented as of this encounter Procedures Procedure Name Priority Date/Time Associated Diagnosis Comments COLONOSCOPY Routine 08/13/2020 documented in this encounter Results * Colonoscopy (08/13/2020) Colonoscopy Normal Normal Narrative Barb Meade - 08/13/2020 Recommended 10 year follow up Historical Provider HEALTH MAINTENANCE Final Result documented in this encounter Visit Diagnoses Not on filedocumented in this encounter Additional Health Concerns Assessment Noted Time PHQ-9 Depression Total Score: 10 023 9:11 AM EST documented as of this encounter Care Teams Manager Home Improvement Relationship Specialty Start Date End Date Gema Barber MD [address] [place] [address] PCP - General Family Medicine 05/23/21 documented as of this encounter
--- OUTSIDE RECORDS SUMMARY | 2025-04-12 13:05 | XMS_ITS | Encounter Summary ---
Author Organization [employer] Address [address] [facility] 7t [place] [address] Care Team Providers Care Staff Development Coordinator Rn Name Role Phone Gema Barber MD Primary Care Provider [phone] Reason for Visit * Reason Comments Med Change Request Encounter Details Date Type Department Care Team ([facility] Contact Info) Description 01/14/2024 Refill [facility] MED & PEDS 505 [place], [place] [phone] Gema Barber MD 505 [place] [address] Type 2 diabetes mellitus without complication, with long-term current use of insulin ([facility]) Social History Tobacco Use Types Packs/Day Years [...] Description 06/05/2025 10:30 AM EDT Office Visit [facility] MED & PEDS [address] [place] [address] Rosendo Garrison MD 505 [place] [address] 06/22/2025 9:00 AM EST Office Visit [facility] MED & PEDS 505 [place] [address] Gema Barber MD 505 [place] [address] documented as of this encounter Visit Diagnoses Diagnosis Type 2 diabetes mellitus without complication, with long-term current use of insulin ([facility]) documented in this encounter Additional Health Concerns Assessment Noted Time PHQ-9 Depression Total Score: 0 10/08/19 24 8:35 AM EST documented as of this encounter Care Teams Staff Development Coordinator Rn Relationship Specialty Start Date End Date Gema Barber MD [address] [place] [address] PCP - General Family Medicine 05/23/21 documented as of this encounter
--- OUTSIDE RECORDS SUMMARY | 2025-04-12 13:05 | XMS_ITS | Encounter Summary ---
Author Organization [employer] Address [address] [place] [address] 7t [place] [address] Care Team Providers Care Triage Nurse Name Role Phone Gema Barber MD Primary Care Provider [phone] Reason for Visit * Reason Comments Med Change Request Encounter Details Date Type Department Care Team ([facility] Contact Info) Description 10/23/2022 Refill [facility] MED & PEDS [address] [place] [address] Gema Barber MD 505 [place] [address] Type 2 diabetes mellitus without complication, with long-term current use of insulin ([facility]) Social History Tobacco Use Types [...] Upcoming Encounters Date Type Department Care Team ([facility] Contact Info) Description 06/05/2025 10:30 AM EDT Office [facility] MED & PEDS [address] [place] [address] Rosendo Garrison MD 505 [place] [address] 06/22/2025 9:00 AM EST Office [facility] MED & PEDS [address] [place] [address] Gema Barber MD 505 [place] [address] documented as of this encounter Visit Diagnoses Diagnosis Type 2 diabetes mellitus without complication, with long-term current use of insulin ([facility]) documented in this encounter Additional Health Concerns Assessment Noted Time PHQ-9 Depression Total Score: 10 023 9:11 AM EST documented as of this encounter Care Teams Triage Nurse Relationship Specialty Start Date End Date Gema Barber MD [address] [place] [address] PCP - General Family Medicine 05/23/21 documented as of this encounter
--- OUTSIDE RECORDS SUMMARY | 2025-04-12 13:05 | XMS_ITS | Clinical Summary ---
Author Organization [employer] Address [address] [facility] 7[address] [place] [address] Care Team Providers Care Gravity Prospecting Observer Helper Name Role Phone Gema Barber MD Primary Care Provider [phone] Allergies No known active allergies Medications tadalafil (Cialis) 20 MG tabletIndicatio ns:Erectile disorder Take 1 tablet (20 mg) by mouth if needed each day for erectile dysfunction. 10 tablet 09/11/19 23 Active pantoprazole (Protonix) 40 MG EC tablet Take 1 tablet (40 mg) by mouth before breakfast. Do not crush, chew, or split. 56 tablet 02/23/20 23 Active fluticasone (Flonase) 50 MCG/ACT nasal spray Administer 1-2 sprays into each nostril in the morning. Shake gently. Before first use, prime pump. After use, clean tip and replace cap. 16 g 11 06/18/20 23 Active FreeStyle lancets USE 2 TIMES DAILY INSTRUCTED 200 each 11 04/26/20 24 Active glipiZIDE (Glucotrol) 10 MG tablet Take 10 mg by mouth before breakfast and before evening meal. Active glucose blood (FREESTYLE LITE) test stripIndication s:Type 2 diabetes mellitus without complication, unspecified whether seismograph shooter insulin use ([facility]) CHECK BLOODSUGAR BY SKIN ROUTE 3 TIMES EVERY DAY EVERY 8HRS 100 strip 11 05/26/20 24 Active lisinopril 10 MG tablet TAKE 1 TABLET BY MOUTH EVERY DAY 90 tablet 1 07/12/20 24 Active simvastatin (Zocor) 20 MG tablet TAKE 1 TABLET BY MOUTH EVERY DAY 90 tablet 1 07/12/20 24 Active insulin pen needle (B-D UF III MINI PEN NEEDLES) 31G x 5 mm misc USE ONCE A DAY INSTRUCTED 100 each 3 07/20/20 24 Active metFORMIN (Glucophage) 1000 MG tabletIndicatio ns:Type 2 diabetes mellitus without complication, with long-term current use of insulin (CMS/HCC) TAKE 1 TABLET BY MOUTH WITH EVENING MEAL. DO NOT CRUSH, CHEW, OR SPLIT. 90 tablet 1 10/11/19 25 Active insulin glargine (Basaglar KwikPen) 100 UNIT/ML penIndications: Type 2 diabetes mellitus without complication, with long-term current use of insulin (CMS/HCC) INJECT 44 UNITS SUBCUTANEOUSLY AT BEDTIME 3 mL 12 01/19/20 25 Active sulfamethoxazol e-trimethoprim (Bactrim DS) 800-160 MG tablet Take 1 tablet by mouth 2 times daily for 10 days. 20 tablet 04/12/20 25 025 Active Tirzepatide 2.5 MG/0.5ML solution auto-injectorIn dications:Type 2 diabetes mellitus without complication, with long-term current use of insulin (CMS/HCC) Inject 2.5 mg under the skin 1 (one) time per week. Add monjauro 2 mL 3 04/12/20 25 Active Active Problems Problem Noted Date Diagnosed Date Right thigh pain 05/26/2024 Varicose veins of right lower extremity 05/26/20 24 Class 1 obesity due to exces s calories with serious comorbidity and body mass index (BMI) of 31.0 to 31.9 in adult 10/08/2023 Assessment & Plan (10/08/2023 8:44 AM EST): Discussed calorie deficit, recommended reduction of 20-30% of maintenance calories Recommended to decrease soda and sugary beverage consumption. Recommended at least 20 g per meal of protein to assist with satiety. Recommended at least 150 min/week of moderate intensity exercise. Encounter for health-related screening Assessment & Plan (06/18/2023 9:24 AM EDT): Patient will be sent for Labs: HIV-1/2, Hep.C Onychomycosis 06/18/2023 Assessment & Plan (06/18/2023 9:24 AM EDT): Patient with complaints of Onychomycosis will be send for Podiatry. LUQ abdominal pain 02/22/2023 Assessment & Plan (02/22/2023 12:12 PM EDT): Patient with LUQ abdominal pain with associated dysgeusia. Will send for abdominal CT scan and start on pantoprazole. Need for vaccination 09/11/2022 Assessment & Plan (09/15/2022 5:39 PM EST): Zoster vaccine sent to pharmacy Erectile disorder 09/11/2022 Assessment & Plan (09/15/2022 5:40 PM EST): In the setting of DM, will start medication and f/u next month. HTN (hypertension) 12/08/2012 Assessment & Plan (08/31/2024 10:52 AM EST): Advised to monitor BP at home, continue on current medications and follow up in 4 months. Assessment & Plan (10/08/2023 9:05 AM EST): Controlled. Continue same treatment regimen. Diabetes mellitus type 2, uncomplicated 12/09/19 13 Assessment & Plan (08/31/2024 10:52 AM EST): Pt will come in tomorrow 09-01-2024, for glucose check. Continue on current medications, follow up in 4 months. Assessment & Plan (05/26/2024 9:57 AM EDT): Lab Results Component Value Date HGBA1C 8.4 05/26/2024 - Patient improved but not controlled, previous experience with short acting insulin with multiple hypoglycemic epiosodes, does report with glipizide also experience some hypoglycemic episodes, in the past had well controlled postprandials with GLP-1. He will strongly benefit of restarting GLP-1 to reduced his risk of hypoglycemia and improve his glucose control. Relevant orders: -Dulaglutide (Trulicity) 0.75 MG/0.5ML solution auto-injector -glucose blood (FREESTYLE LITE) test strip Assessment & Plan (01/12/2024 1:57 PM EDT): Uncontrolled, will adjust doses of insulin and glipizide. Target <7%. Lab Results Component Value Date HGBA1C 9.7 (A) 01/07/2024 At this moment will keep close monitoring. No future appointments. Assessment & Plan (10/08/2023 9:05 AM EST): Uncontrolled: Patient comes in to visit for glucose F/U. His glucose today was 442 and A1C 10 (was 8.7). Patient reports he hasn't been taking his tablet for DM because he misplaced it but already ordered a refill. He has been consistent with insulin injections. He doesn't regularly check his glucose. I advised changing his medication regimen but he declined and want to continue the same treatment plan. He states he is going to try and follow treatment plan and will come in for F/U with nurse in 3 months. During this F/U I advised him to keep a daily log of his glucose values. Then, I will F/U with patient in 3 months as well. During this time if glucose is still uncontrolled we will consider changing treatment plan. I offered to refer him to log [facility] but declined. I referred patient to Eye care for diabetic exam. Labs: glucose, HGB A1C Future Appointments Date Time Provider Department Center 11/05/2023 8:00 AM Josemanuel Garrison [facility] 11/12/2023 9:30 AM [facility] NURSE [facility] Assessment & Plan (07/23/2023 9:14 AM EST): Uncontrolled: patient will have an increase Lantus to 36 UNITS to control numbers. In addition, patient will be prescribed Mounjaro. Patient was advised to monitor glucose levels at home, and bring number upon next office visit. Assessment & Plan (06/18/2023 9:25 AM EDT): Uncontrolled: patient will have an increase of insulin: 32 Units. Will send for Labs: Albumin, CBC, Met. Panel, Lipid Panel, Vit.B-12. Advised to take medication after food consumption. Recommended to bring home number upon next visit. Follow up in 1 month. Assessment & Plan (02/22/2023 12:11 PM EDT): Uncontrolled. On max dose of metformin and trulicity. At this point will increase insulin (lantus) to 18 units. Advised patient to increase insulin by 3 units daily if not in target. Assessment & Plan (11/04/2022 10:14 PM EDT): Lab Results Component Value Date HGBA1C 11.0 (A) 10/23/2022 Uncontrolled. Continue with metformin, lantus and high dose trulicity, consider switch to tirzepatide before adding meal time insulin. Also consider adding SGLT-2, glipizide Assessment & Plan (09/15/2022 5:40 PM EST): Uncontrolled, in the setting of not being able to obtain his GLP-1 agonist, called pharmacy and they will provide his GLP-1. Target a1c < 7%, target fasting 80-130 mg/dL. Will make f/u in 4-6 weeks. Encounters Date Type Department Care Team Description 04/12/2025 11:30 AM EDT Office Visit [facility] MED [facility] PEDS [address] [place] [address] Gema Barber MD Type 2 diabetes mellitus without complication, with long-term current use of insulin ([facility]) (Primary Dx); Boils of multiple sites; Rash 04/12/2025 Travel 04/10/2025 Telephone [facility] [address] [place] [address] Gema Barber MD chart prep 04/05/2025 Patient Outreach [facility] [address] [place], [place] [phone] Gema Barber MD Pre-visit Planning (Pre visit planning LVM ) 03/02/2025 10:00 AM EDT Office Visit [facility] ADULT DENTAL [address] [place] [address] Josemanuel Garrison Dental calculus (Primary Dx) 03/02/2025 Telephone [facility] ADULT DENTAL [address] [place] [address] Josemanuel Garrison 03/02/2025 Telephone [facility] [address] [place], [place] [phone] Meli Josemanuel 01/18/2025 Refill [facility] [address] [place], [place] [phone] Gema Barber MD Type 2 diabetes mellitus without complication, with long-term current use of insulin ([facility]) 01/15/2025 Telephone [facility] [address] [place], [place] [phone] Gema Barber MD Medication Question 01/13/2025 Refill [facility] [address] [place], [place] [phone] Gema Barber MD from Last 3 Months Immunizations Immunization Administration Dates Next Due Hep B, adult 05/26/2024,12/10/2023 INFLUENZA VACCINE QUADRIVALE NT RECOMBINANT PRESERVATIVE FREE RIV4 05/18/2020 Influenza injectable quadriv alent IIV4 with preservative 05/27/2018,08/27/2016 Influenza injectable quadriv alent preservative free 06/18/2023,05/15/2022,05/10/2021,06/02,05/14/2017 Influenza, IIV3, injectable 05/10/2021, 6,05/24/2014 Influenza, Split (incl. capri fied surface antigen) 04/27/2013,05/18/2012 Influenza, seasonal, injecta ble, preservative free 05/26/2024 Moderna Covid-19 Vaccine 12+ 09/26/2021,01/05/20 21,12/07/2020 Pfizer Covid-19 Vaccine 12+ 11/12/2023 Pneumococcal Conjugate PCV 20 07/23/2023 Pneumococcal Polysaccharide PPSV23 08/27/2016 Tdap 12/31/2017 Zoster, Recombinant 11/27/2022,09/11/2022 Social History Tobacco Use Types Packs/Day Years Used Date Smoking Tobacco: Never Passive Smoke Exposure: Never Smokeless Tobacco: Never Tobacco Cessation:Counseling Given: Not Answered Alcohol Use Standard Drinks/Week Comments Never 0 [...] Orientation Straight 03/19/2023 8: 20 AM EDT Last Filed Vital Signs Vital Sign Reading Time Taken Comments Blood Pressure 136/68 03/02/2025 9:14 AM EDT Pulse 75 03/02/2025 9:14 AM EDT Temperature 36.7 C (98.1 F) 05/26/2024 9:11 AM EDT Respiratory Rate 18 05/26/2024 9:11 AM EDT Oxygen Saturation 98% 01/07/2024 10:03 AM EDT Inhaled Oxygen Concentration - - Weight 88.9 kg (196 lb) 05/26/2024 9:11 AM EDT Height 167 cm (5' 5.75 ) 05/26/2024 9:11 AM EDT Body Mass Index 31.88 05/26/2024 9:11 AM EDT Plan of Treatment Upcoming Encounters Date Type Department Care Team (Late st Contact Info) Description 06/05/2025 10:30 AM EDT Office Visit [facility] [address] [place] [address] Rosendo Garrison MD [address] [place] [address] 06/22/2025 9:00 AM EST Office Visit [facility]ED[facility] [address] [place] [address] Gema Barber MD [address] [place] [address] Health Maintenance Due Date Last Done Comments CT Colonography 1966 FIT DNA/Cologuard 1966 FIT 1966 FOBT 1966 Sigmoidoscopy 1966 Disability Screening 1966 Eye Exam 1976 Dental Oral Exam 05/08/2024 11/05/2023, , 01/13/2019, Additional history exists Diabetes: Foot Exam 06/18/2024 06/18/2023, 06/18/2023, 06/18/2023, Additional history exists Diabetes: Urine Protein Screening 07/02/2024 07/02/2023, 09/04/2022, 02/27/2021, Additional history exists Hepatitis B Vaccines (3 of 3 - 19+ 3-dose series) 07/21/2024 05/26/2024, 12/10/2023 Influenza Vaccine (#1) 2025 , 06/18/2023, 05/15/2022, Additional history exists Dental X-Ray: Full Mouth 04/25/2025 04/24/2022, 09/16 COVID-19 Vaccine ( season) 2025 11/12/2023, 09/26/2021, 01/04/2021, Additional history exists Postponed from 04/16/2024 (Patient Refused) Lipid Panel 05/26/2025 05/26/2024, 06/16, 09/04/2022, Additional history exists Diabetes: Hemoglobin A1C 07/13/2025 025, 05/26/2024, 01/07/2024, Additional history exists Dental Prophylaxis 09/03/2025 03/02/2025, 0 09/01/2024, 11/05/2023, Additional history exists Dental X-Ray: Bitewings 03/03/2026 03/02/20, 11/05/2023, 11/06/2021, Additional history exists Alcohol/Substance Use Screening 04/12/2026 04/12/2025 Depression Screening 04/12/2026 04/12/2025, 04/12/20 SDOH Screening 04/12/2026 04/12/2025 Tobacco Screening 04/12/2026 04/12/2025 DTaP/Tdap/Td Vaccines (2 - Td or Tdap) 01/01/2028 12/31/2017 Colonoscopy 08/13/2030 08/13/2020 Colorectal Cancer Screening 08/13/2030 RSV Patients and Patients Aged 60 years or older (1 - 1-dose 75+ series) 2041 Zoster Vaccines Completed 11/27/2022, 09/11/2022 HIV Screening Completed 07/02/2023 Hepatitis C Screening Completed 07/02/2023 Pneumococcal Vaccine: 50+ Years Completed 07/23/2023, 08/27/2016 HIB Vaccines Aged Out No longer eligi ble based on patient's age to complete this topic HPV Vaccines Aged Out No longer eligi ble based on patient's age to complete this topic Hepatitis A Vaccines Aged Out No long er eligible based on patient's age to complete this topic IPV Vaccines Aged Out No longer eligi ble based on patient's age to complete this topic Meningococcal B Vaccine Aged Out No l onger eligible based on patient's age to complete this topic Meningococcal Vaccine Aged Out No krystal shai eligible based on patient's age to complete this topic RSV under 20 months Aged Out No longe r eligible based on patient's age to complete this topic Rotavirus Vaccines Aged Out No longer eligible based on patient's age to complete this topic Procedures Procedure Name Priority Date/Time Associated Diagnosis Comments POCT GLYCATED HEMOGLOBIN, TOTAL Routine 04/12/2025 11:49 AM EDT Type 2 diabetes mellitus without complication, with long-term current use of insulin (CMS/HCC) POCT GLUCOSE Routine 04/12/2025 11:46 AM EDT Type 2 diabetes mellitus without complication, with long-term current use of insulin (CMS/HCC) INTRAORAL - PERIAPICAL EACH ADDITIONAL RADIOGRAPHIC IMAGE Routine 03/02/2025 10:00 AM EDT INTRAORAL - PERIAPICAL FIRST RADIOGRAPHIC IMAGE Routine 03/02/2025 10:00 AM EDT BITEWINGS - 4 RADIOGRAPHIC IMAGES Routine 03/02/2025 10:00 AM EDT ORAL HYGIENE INSTRUCTIONS Routine 03/02/2025 10:00 AM EDT CASE PRESENTATION, DETAILED AND EXTENSIVE TREATMENT PLANNING Routine 03/02/2025 10:00 AM EDT PROPHYLAXIS - ADULT Routine 03/02/2025 1 0:00 AM EDT LIPID PANEL, STANDARD Routine 05/26/2024 9:50 AM EDT Type 2 diabetes mellitus without complication, with long-term current use of insulin (CMS/HCC) PERIODIC ORAL EVALUATION - ESTABLISHED PATIENT Routine 11/05/2023 8:00 AM EDT ALBUMIN, RANDOM URINE W/CREATININE Routine 07/02/2023 9:00 AM EST Type 2 diabetes mellitus without complication, with long-term current use of insulin (CMS/HCC) HEPATITIS C ANTIBODY Routine 07/02/2023 8:53 AM EST Encounter for health-related screening HIV 1/2 ANTIGEN/ANTIBODY, FOURTH GENERATION W/RFL Routine 07/02/2023 8:53 AM EST Encounter for health-related screening PANORAMIC RADIOGRAPHIC IMAGE Routine 04/24/2022 12:00 AM EDT HM COLONOSCOPY Routine 08/13/2020 from Last 3 Months or Most Recently Relevant to Health Maintenance Results * (ABNORMAL) POCT HGB A1C (04/12/2025 11:49 AM EDT) Pathologist [facility] Hemoglobin A1C 13.3(A) 4.0 - 5.7 % QC Media Lot # [id number] Lot# Expiration Date 47, Blood 04/12/2025 11:4 9 AM EDT Gema Barber MD POINT OF CARE TEST ENTER/EDIT ORDERABLES Final Result * (ABNORMAL) POCT Glucose (04/12/2025 11:46 AM EDT) [facility] Glucose Blood, POC 219(A) 60 - 200 mg/dL QC Media Lot # [id number] Lot# Expiration Date , Blood Capillary blood specimen / Unknown 04/12/2025 11:46 AM EDT Gema Barber MD POINT OF CARE TEST ENTER/EDIT ORDERABLES Final Result * Lipid Panel, Standard (05/26/2024 9:50 AM EDT) [facility] Triglycerides 79 <150 mg/dL [facility] Comment:Desirable Triglyceri de: less than 150 mg/dLBorderline High Triglyceride 150-199 mg/dLHigh Triglyceride: 200-499 mg/dLVery High Triglyceride: greater than or equal to 5OO mg/dL Cholesterol 175 <200 mg/dL [facility] Comment:Desirable Cholestero l: less than 200 mg/dLBorderline High Cholesterol: 200-239 mg/dLHigh Cholesterol: greater than 239 mg/dL LDL Cholesterol Calculated 99 <100 mg/dL [facility] Comment:Desirable LDL: less than 100 mg/dLNear Optimal/Above Optimal LDL: 110- 129 mg/dLBorderline High LDL: 130-159 mg/dLHigh LDL: 160-189 mg/dLVery High LDL: greater than or equal to 190 mg/dL HDL Cholesterol 61 >40 mg/dL [facility] Comment:Desirable HDL: great er than 40 mg/dL Note: This HDL assay may give artificially low results in patients with liver disease. Blood Venous blood specimen / Unknown 05/26/2024 9:50 AM EDT 05/26/2024 2:05 PM EDT Gema Barber MD LAB BLOOD ORDERABLES Final Re sult Performing Organization Address [facility] de Phone Number [facility] [address] [place] [phone] * Albumin, Random Urine W/Creatinine (07/02/2023 9:00 AM EST) Creatinine, Urine 144.21 mg/dL [facility] Microalbumin Urine 8.0 mg/L [facility] Microalbum Creatinine Ratio Ur 5.5 <30 ug/mg cr [facility] Comment:Albumin/Creatinine R atio Reference Ranges: Normal: < 30 ug/mg creatinine Microalbuminuria: 30 - 300 ug/mg creatinineClinical Albuminuria: > 300 ug/mg creatinine Urine (Urine, Random) 07/02/2023 9:00 AM EST 07/02/2023 2:31 PM EST us Gema Barber MD LAB URINE ORDERABLES Final Re sult Performing Organization Address [facility] Co de Phone Number [facility] [address] [place] [phone] * Hepatitis C Ab (07/02/2023 8:53 AM EST) Hepatitis C Antibody Nonreactive Nonreactive [facility] Comment:Antibodies to HCV no t detected; does not exclude early acuteHCV infection. Blood Venous blood specimen / Unknown 07/02/2023 8:53 AM EST 07/02/2023 2:22 PM EST Gema Barber MD LAB BLOOD ORDERABLES Final Re sult Performing Organization Address [facility]/ZIP Co de Phone Number [facility] [address] [place] [address] [phone] * HIV-1/2 Antigen and Antibodies, Fourth Generation, with Reflexes (07/02/2023 8:53 AM EST) HIV AB/AG Nonreactive Nonreactive [facility] Comment:HIV-1 p24 Ag and/or HIV-1/HIV-2 Ab not detected.A test result that is nonreactive does not exclude thepossibility of exposure to or infection with HIV-1 and/orHIV-2. Nonreactive results in this assay for individualswith prior exposure to HIV-1 and/or HIV-2 may be due toantigen and antibody levels that are below the limit ofdetection of this assay.The farmhopping HIV Ag/Ab Combo assay result andsupplemental assay results should be interpreted inconjunction with the patient's clinical presentation,history and other laboratory results. If the results areinconsistent with clinical evidence, additional testing issuggested to confirm the result. Blood Venous blood specimen / Unknown 07/02/2023 8:53 AM EST 07/02/2023 2:22 PM EST us Gema Barber MD LAB BLOOD ORDERABLES Final Re sult Performing Organization Address [facility]/ZIP Co de Phone Number [facility] [address] [place] [phone] [phone] * Hm Colonoscopy (08/13/2020) Colonoscopy Normal Normal Narrative Brab Meade - 08/13/2020 Recommended 10 year follow up us Historical Provider HEALTH MAINTENANCE Final Result from Last 3 Months or Most Recently Relevant to Health Maintenance Insurance [address] [place] [address] [facility] [address] [place] [address] [facility] [address] [place] [id number] [address] [place] [address] [address] [place] [address] Care Teams Gravity Prospecting Observer Helper Relationship Specialty Start Date End Date Gema Barber MD [address] [place] [phone] PCP - General Family Medicine 05/23/21
[2025-04-12 15:55] LABS: MRSA Nasal PCR POSITIVE (Negative); SA Nasal PCR POSITIVE (Negative)
== END 2025-04-12 12:01 | disposition home or self-care (01) ==
LOC: HO.CHCLNP 12:00
PROVIDERS: Visit Provider Family Medicine
DX: L02.92 Furuncle, unspecified (principal)
CPT/HCPCS: 87640; 87641

== ENCOUNTER 2025-04-26 09:29 | Outpatient (REF) | payer OTHER, SELFPAY ==
--- OUTSIDE RECORDS SUMMARY | 2025-04-26 11:02 | XMS_ITS | Encounter Summary ---
Author Organization [employer] Address [address] [facility] [address] [place] [address] Care Team Providers Care Mountain Or Glacier Guide Name Role Phone Gema Barber MD Primary Care Provider [phone] Encounter Details Date Type Department Care Team ([facility] Contact Info) Description 04/26/2025 Results Follow-Up [facility] [address] [place], [place] [phone] Gema Barber MD [address] [place] [address] POCT HGB A1C, POCT Glucose, MRSA Nasal Screen Social History Tobacco Use Types Packs/Day Years [...] Description 06/05/2025 10:30 AM EDT Office Visit [facility] [address] [place] [address] Rosendo Garrison MD [address] [place] [address] 06/22/2025 9:00 AM EST Office Visit [facility] [address] [place] [address] Gema Barber MD [address] [place] [address] documented as of this encounter Visit Diagnoses Diagnosis 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
--- OUTSIDE RECORDS SUMMARY | 2025-04-26 11:02 | XMS_ITS | Encounter Summary ---
Author Organization [employer] Address [address] [place] [address] [address] [place] [address] Care Team Providers Care Hand Assembler For Puller Over Name Role Phone Gema Barber MD Primary Care Provider [phone] Reason for Visit * Reason Comments Med Refill Encounter Details Date Type Department Care Team ([facility] Contact Info) Description 01/10/2023 Refill [facility] [address] [place] [address] Gema Barber MD [address] [place] [address] Social History Tobacco Use Types Packs/Day Years [...] Upcoming Encounters Date Type Department Care Team ([facility] Contact Info) Description 06/05/2025 10:30 AM EDT Office Visit [facility] [address] [place] [address] Rosendo Garrison MD [address] [place] [address] 06/22/2025 9:00 AM EST Office Visit [facility] [address] [place] [address] Gema Barber MD [address] [place] [address] documented as of this encounter Visit Diagnoses Not on filedocumented in this encounter Additional Health Concerns Assessment Noted Time PHQ-9 Depression Total Score: 10 023 9:11 AM EST documented as of this encounter Care Teams Hand Assembler For Puller Over Relationship Specialty Start Date End Date Gema Barber MD [address] [place] [phone] PCP - General Family Medicine 05/23/21 documented as of this encounter
--- OUTSIDE RECORDS SUMMARY | 2025-04-26 11:02 | XMS_ITS | Encounter Summary ---
Author Organization [employer] [facility] Address [address] [place] [address] 7t [place] [address] Care Team Providers Care Passenger Attendant Name Role Phone Gema Barber MD Primary Care Provider [phone] Encounter Details Date Type Department Care Team (Latest Contact Info) Description 07/21/2019 Abstract [facility] CONVERSIONS Dental, Provider, DDS Social History Tobacco [...] Description 06/05/2025 10:30 AM EDT Office Visit [facility] MED & PEDS [address] [place] [address] Rosendo Garrison MD [address] [place] [address] 06/22/2025 9:00 AM EST Office Visit [facility]ED[facility] [address] [place] [address] Gema Barber MD [address] [place] [phone] documented as of this encounter Visit Diagnoses Not on filedocumented in this encounter Care Teams Passenger Attendant Relationship Specialty Start Date End Date Gema Barber MD [address] [place] [address] PCP - General Family Medicine 05/23/21 documented as of this encounter
--- OUTSIDE RECORDS SUMMARY | 2025-04-26 11:02 | XMS_ITS | Encounter Summary ---
Author Organization [email or web address] [facility] Address [address] [place] [address] 7t [place] [address] Care Team Providers Care Principal Technical Specialist Name Role Phone Gema Barber MD Primary Care Provider [phone] Encounter Details Date Type Department Care Team (Latest Contact Info) Description 12/09/2018 Abstract [facility] CONVERSIONS Dental, Provider, DDS Social [...] Description 06/05/2025 10:30 AM EDT Office Visit [facility] MED & PEDS [address] [place] [address] Rosendo Garrison MD [address] [place] [address] 06/22/2025 9:00 AM EST Office Visit [facility] MED & PEDS [address] [place] [address] Gema Barber MD [address] [place] [address] documented as of this encounter Visit Diagnoses Not on filedocumented in this encounter Care Teams Principal Technical Specialist Relationship Specialty Start Date End Date Gema Barber MD [address] [place] [address] PCP - General Family Medicine 05/23/21 documented as of this encounter
--- OUTSIDE RECORDS SUMMARY | 2025-04-26 11:02 | XMS_ITS | Clinical Summary ---
Author Organization [employer] Address [address] [facility] 7t [place] [address] Care Team Providers Care Dragsaw Operator Name Role Phone Gema Barber MD Primary Care Provider [phone] Allergies No known active allergies Medications tadalafil (Cialis) 20 MG tabletIndicatio ns:Erectile disorder Take 1 tablet (20 mg) by mouth if needed each day for erectile dysfunction. 10 tablet 023 Active pantoprazole (Protonix) 40 MG EC tablet Take 1 tablet (40 mg) by mouth before breakfast. Do not crush, chew, or split. 56 tablet 023 Active fluticasone (Flonase) 50 MCG/ACT nasal spray Administer 1-2 sprays into each nostril in the morning. Shake gently. Before first use, prime pump. After use, clean tip and replace cap. 16 g 11 023 Active FreeStyle lancets USE 2 TIMES DAILY INSTRUCTED 200 each 11 Active glipiZIDE (Glucotrol) 10 MG tablet Take 10 mg by mouth before breakfast and before evening meal. Active glucose blood (FREESTYLE LITE) test stripIndication s:Type 2 diabetes mellitus without complication, unspecified whether chcf insulin use ([facility]) CHECK BLOODSUGAR BY SKIN ROUTE 3 TIMES EVERY DAY EVERY 8HRS 100 strip 11 024 Active lisinopril 10 MG tablet TAKE 1 TABLET BY MOUTH EVERY DAY 90 tablet 1 024 Active simvastatin (Zocor) 20 MG tablet TAKE 1 TABLET BY MOUTH EVERY DAY 90 tablet 1 024 Active insulin pen needle (B-D UF III MINI PEN NEEDLES) 31G x 5 mm misc USE ONCE A DAY INSTRUCTED 100 each 3 024 Active insulin glargine (Basaglar KwikPen) 100 UNIT/ML penIndications: Type 2 diabetes mellitus without complication, with long-term current use of insulin (CMS/HCC) INJECT 44 UNITS SUBCUTANEOUSLY AT BEDTIME 3 mL 12 025 Active Tirzepatide 2.5 MG/0.5ML solution auto-injectorIn dications:Type 2 diabetes mellitus without complication, with long-term current use of insulin (CMS/HCC) Inject 2.5 mg under the skin 1 (one) time per week. Add monjauro 2 mL 3 025 Active metFORMIN (Glucophage) 1000 MG tabletIndicatio ns:Type 2 diabetes mellitus without complication, with long-term current use of insulin (CMS/HCC) TAKE 1 TABLET BY MOUTH WITH EVENING MEAL. DO NOT CRUSH, CHEW, OR SPLIT. 30 tablet 5 Active mupirocin (Bactroban) 2 % ointment Apply topically 3 times daily for 10 days. 22 g 025 2024 Active Chlorhexidine Gluconate 4 % solutionIndicat ions:MRSA nasal colonization Apply 1 Application topically Once per day for 5 days. Total body wash for MRSA eradication 1000 mL 025 2024 Active metFORMIN (Glucophage) 1000 MG tabletIndicatio ns:Type 2 diabetes mellitus without complication, with long-term current use of insulin (CMS/HCC) TAKE 1 TABLET BY MOUTH WITH EVENING MEAL. DO NOT CRUSH, CHEW, OR SPLIT. 90 tablet 1 025 2024 Discontinued sulfamethoxazol e-trimethoprim (Bactrim DS) 800-160 MG tablet Take 1 tablet by mouth 2 times daily for 10 days. 20 tablet 025 2024 Active Problems Problem Noted Date Diagnosed Date MRSA nasal colonization 04/26/2025 Right thigh pain 05/26/2024 Varicose veins of [...] AM EST): Pt will come in tomorrow 01-17-2025, for glucose check. Continue on current medications, [...] plan. I offered to refer him to right of way buyer but declined. I referred patient to [facility] for diabetic exam. Labs: glucose, HGB A1C Future Appointments Date Time Provider Department Center 11/05/2023 8:00 AM Josmeanuel Garrison [facility] ADL [facility] 11/12/2023 9:30 AM [facility] [place] NURSE [facility] MED [facility] Assessment & Plan (07/23/2023 9:14 AM [...] Encounters Date Type Department Care Team Description 04/26/2025 Results Follow-Up [facility] MED & PEDS [address] [place] [address] Gema Barber MD POCT HGB A1C, POCT Glucose, MRSA Nasal Screen 04/24/2025 Refill [facility] [address] [place] [address] Rosendo Garrison MD Type 2 diabetes mellitus without complication, with long-term current use of insulin ([facility]) 04/12/2025 11:30 AM EDT Office Visit [facility] [address] [place] [address] Gema Barber MD Type 2 diabetes mellitus without complication, with long-term current use of insulin ([facility]) (Primary Dx); Boils of multiple sites; Rash 04/12/2025 Travel 04/10/2025 Telephone [facility] [address] [place] [address] Gema Barber MD chart prep 04/05/2025 Patient Outreach [facility] [address] [place] [address] Gema Barber MD Pre-visit Planning (Pre visit planning LVM ) 03/02/2025 10:00 AM EDT Office Visit [facility] ADULT DENTAL [address] [place] [address] Josemanuel Garrison Dental calculus (Primary Dx) 03/02/2025 Telephone [facility] [address] [place] [address] Josemanuel Garrison 03/02/2025 Telephone [facility] [address] [place] [address] Josemanuel Garrison from Last 3 Months Immunizations Immunization Administration [...] Sign Reading Time Taken Comments Blood Pressure 124/82 04/12/2025 2:10 PM EDT Pulse 82 04/12/2025 2:10 PM EDT Temperature 36.4 C (97.6 F) 04/12/2025 2:10 PM EDT Respiratory Rate 20 04/12/2025 2:10 PM EDT Oxygen Saturation 98% 04/12/2025 2:10 PM EDT Inhaled Oxygen Concentration - - Weight 90.4 kg (199 lb 3.2 oz) 04/12/2025 2:10 P M EDT Height 167 cm (5' 5.75 ) 04/12/2025 2:10 PM EDT Body Mass Index 32.4 04/12/2025 2:10 PM EDT Plan of Treatment Upcoming Encounters Date Type Department Care Team (Late st Contact Info) Description 06/05/2025 10:30 AM EDT Office Visit [facility] [address] [place] [address] Rosendo Garrison MD 505 [place] [address] 06/22/2025 9:00 AM EST Office Visit [facility] [address] [place] [address] Gema Barber MD 505 [place] [address] Health Maintenance Due Date Last Done Comments [...] - 19+ 3-dose series) 07/21/2024 05/26/2024, 12/10/2023 COVID-19 Vaccine ( - 2024- season) 2025 11/12/2023, 09/26/2021, 01/04/2021, Additional history exists Influenza Vaccine (#1) 2025 , 06/18/2023, 05/15/2022, Additional history exists Dental X-Ray: Full Mouth 04/25/2025 04/24/2022, 09/16 Lipid Panel 05/26/2025 05/26/2024, 06/16, 09/04/2022, Additional history exists Diabetes: Hemoglobin A1C 07/13/2025 025, 05/26/2024, 01/07/2024, Additional history exists Dental Prophylaxis 09/03/2025 03/02/2025, 0 09/01/2024, 11/05/2023, Additional history exists Dental X-Ray: Bitewings 03/03/2026 03/02/20 25, 11/05/2023, 11/06/2021, Additional history exists Alcohol/Substance Use Screening 04/12/2026 04/12/2025 Depression Screening 04/12/2026 04/12/2025, 04/12/20 25 SDOH Screening 04/12/2026 04/12/2025 Tobacco Screening 04/12/2026 [...] Procedure Name Priority Date/Time Associated Diagnosis Comments MRSA NASAL SCREEN Routine 04/12/2025 12: 00 PM EDT Boils of multiple sites POCT GLYCATED HEMOGLOBIN, TOTAL Routine 04/12/2025 11:49 AM EDT Type 2 diabetes mellitus without complication, with long-term current use of insulin ([facility]/HCC) POCT GLUCOSE Routine 04/12/2025 11:46 AM EDT [...] Relevant to Health Maintenance Results * (ABNORMAL) MRSA Nasal Screen (04/12/2025 12:00 PM EDT) MRSA Nasal PCR POSITIVE( A) Negative [facility] SA Nasal PCR POSITIVE( A) Negative [facility] MRSA Interpretation SEE NOTE [facility] Comment:MRSA target DNA dete cted; SA target DNA detected.A positive result does not necessarily indicate the presenceof viable organisms. It is, however, presumptive for thepresence of MRSA or SA. Nares Structure of left anterior naris / Unknown 04/12/2025 12:00 PM EDT 04/12/2025 2:27 PM EDT us Gema Barber MD LAB MICROBIOLOGY - GENERAL OR DERABLES Final Result [facility] [address] [place] [phone] * (ABNORMAL) POCT HGB A1C (04/12/2025 11:49 AM EDT) Hemoglobin A1C 13.3(A) 4.0 - 5.7 % QC Media Lot # [id number] Lot# Expiration Date [id number] Blood 04/12/2025 11:4 9 AM EDT us Gema Barber MD POINT OF CARE TEST ENTER/EDIT ORDERABLES Final Result * (ABNORMAL) POCT Glucose (04/12/2025 11:46 AM EDT) Glucose Blood, POC 219(A) 60 - 200 mg/dL QC Media Lot # [id number] Lot# Expiration Date Blood Capillary blood specimen / Unknown 04/12/2025 11:46 AM EDT us Gema Barber MD POINT OF CARE TEST ENTER/EDIT ORDERABLES Final Result * Lipid Panel, Standard (05/26/2024 9:50 AM EDT) Triglycerides 79 <150 mg/dL [facility] Comment:Desirable Triglyceri de: less than 150 mg/dLBorderline High Triglyceride 150-199 mg/dLHigh Triglyceride: 200-499 mg/dLVery High Triglyceride: greater than or equal to 5OO mg/dL Cholesterol 175 <200 mg/dL [facility] Comment:Desirable Cholestero l: less than 200 mg/dLBorderline High Cholesterol: 200-239 mg/dLHigh Cholesterol: greater than 239 mg/dL LDL Cholesterol Calculated 99 <100 mg/dL [facility] Comment:Desirable LDL: less than 100 mg/dLNear Optimal/Above Optimal LDL: 110- 129 mg/dLBorderline High LDL: 130-159 mg/dLHigh LDL: 160-189 mg/dLVery High LDL: greater than or equal to 190 mg/dL HDL Cholesterol 61 >40 mg/dL [facility] Comment:Desirable HDL: great er than 40 mg/dL Note: This HDL assay may give artificially low results in patients with liver disease. Blood Venous blood specimen / Unknown 05/26/2024 9:50 AM EDT 05/26/2024 2:05 PM EDT us Gema Barber MD LAB BLOOD ORDERABLES Final Re sult Performing Organization Address [facility] de Phone Number [facility] [address] [place] [phone] * Albumin, Random Urine W/Creatinine (07/02/2023 9:00 AM EST) Creatinine, Urine 144.21 mg/dL [facility] Microalbumin Urine 8.0 mg/L [facility] Microalbum Creatinine Ratio Ur 5.5 <30 ug/mg cr [facility] Comment:Albumin/Creatinine R atio Reference Ranges: Normal: < 30 ug/mg creatinine Microalbuminuria: 30 - 300 ug/mg creatinineClinical Albuminuria: > 300 ug/mg creatinine Urine (Urine, Random) 07/02/2023 9:00 AM EST 07/02/2023 2:31 PM EST us Gema Barber MD LAB URINE ORDERABLES Final Re sult Performing Organization Address [facility] Co de Phone Number [facility] [address] [place] [phone] * Hepatitis C Ab (07/02/2023 8:53 AM EST) Pathologist [facility] Hepatitis C Antibody Nonreactive Nonreactive [facility] Comment:Antibodies to HCV no t detected; does not exclude early acuteHCV infection. Blood Venous blood specimen / Unknown 07/02/2023 8:53 AM EST 07/02/2023 2:22 PM EST us Gema Barber MD LAB BLOOD ORDERABLES Final Re sult Performing Organization Address [facility] de Phone Number [facility] [address] [place] [phone] * HIV-1/2 Antigen and Antibodies, Fourth Generation, with Reflexes (07/02/2023 8:53 AM EST) HIV AB/AG Nonreactive Nonreactive [facility] Comment:HIV-1 p24 Ag and/or HIV-1/HIV-2 Ab not detected.A test result that is nonreactive does not exclude thepossibility of exposure to or infection with HIV-1 and/orHIV-2. Nonreactive results in this assay for individualswith prior exposure to HIV-1 and/or HIV-2 may be due toantigen and antibody levels that are below the limit ofdetection of this assay.The [employer] HIV Ag/Ab Combo assay result andsupplemental assay results should be interpreted inconjunction with the patient's clinical presentation,history and other laboratory results. If the results areinconsistent with clinical evidence, additional testing issuggested to confirm the result. Blood Venous blood specimen / Unknown 07/02/2023 8:53 AM EST 07/02/2023 2:22 PM EST Gema Barber MD LAB BLOOD ORDERABLES Final Re sult Performing Organization Address [facility]/State/[facility] Co de Phone Number [facility] [address] [place] [phone] * Colonoscopy (08/13/2020) Colonoscopy Normal Normal Narrative Barb Meade - 08/13/2020 Recommended 10 year follow up Historical Provider HEALTH MAINTENANCE Final Result from Last 3 Months or Most Recently Relevant to Health Maintenance Insurance [place] [id number] [place] [id number] [place] [address] [facility] [place] Care Teams Dragsaw Operator Relationship Specialty Start Date End Date Gema Barber MD [address] [place] [phone] PCP - General Family Medicine 05/23/21
--- OUTSIDE RECORDS SUMMARY | 2025-04-26 11:02 | XMS_ITS | Encounter Summary ---
Author Organization [employer] Address [address] [place] [address] 7t [place] [address] Care Team Providers Care Heating And Cooling Technician Name Role Phone Gema Barber MD Primary Care Provider [phone] Reason for Visit * Reason Comments Med Change Request Encounter Details Date Type Department Care Team ([facility] Contact Info) Description 10/23/2022 Refill [facility] [address] [place] [address] Gema Barber MD [address] [place] [address] Type 2 diabetes mellitus without complication, with long-term current use of insulin ([facility]) Social History Tobacco Use Types Packs/Day Years [...] Upcoming Encounters Date Type Department Care Team ([facility] Contact Info) Description 06/05/2025 10:30 AM EDT Office Visit [facility] MED & PEDS [address] [place] [address] Rosendo Garrison MD [address] [place] [address] 06/22/2025 9:00 AM EST Office Visit [facility] MED & PEDS [address] [place] [address] Gema Barber MD [address] [place] [address] documented as of this encounter Visit Diagnoses Diagnosis Type 2 diabetes mellitus without complication, with long-term current use of insulin ([facility]) documented in this encounter Additional Health Concerns Assessment Noted Time PHQ-9 Depression Total Score: 10 023 9:11 AM EST documented as of this encounter Care Teams Heating And Cooling Technician Relationship Specialty Start Date End Date Gema Barber MD [address] [place] [address] PCP - General Family Medicine 05/23/21 documented as of this encounter
--- OUTSIDE RECORDS SUMMARY | 2025-04-26 11:02 | XMS_ITS | Encounter Summary ---
Author Organization [employer] [facility] Address [address] [place] [address] 7t [place] [address] Care Team Providers Care Alarm Mechanic Name Role Phone Gema Barber MD Primary Care Provider [phone] Encounter Details Date Type Department Care Team (Latest Contact Info) Description 11/06/2021 Abstract [facility] CONVERSIONS Dental, Provider, DDS Social [...] 06/05/2025 10:30 AM EDT Office Visit [facility] MED & PEDS [address] [place] [address] Rosendo Garrison MD [address] [place] [address] 06/22/2025 9:00 AM EST Office Visit [facility] PEDS [address] [place] [address] Gema Barber MD [address] [place] [phone] documented as of this encounter Visit Diagnoses Not on filedocumented in this encounter Care Teams Alarm Mechanic Relationship Specialty Start Date End Date Gema Barber MD [address] [place] [address] PCP - General Family Medicine 05/23/21 documented as of this encounter
--- OUTSIDE RECORDS SUMMARY | 2025-04-26 11:02 | XMS_ITS | Encounter Summary ---
Author Organization [employer] Address [address] [facility] 7t [place] [address] Care Team Providers Care Triple Valve Mechanic Name Role Phone Gema Barber MD Primary Care Provider [phone] Reason for Visit * Reason Comments Med Change Request Encounter Details Date Type Department Care Team ([facility] Contact Info) Description 06/18/2023 Refill [facility] [address] [place] [address] Gema Barber MD [address] [place] [address] Type 2 diabetes mellitus without complication, with long-term current use of insulin ([facility]) Social History Tobacco Use Types [...] 06/05/2025 10:30 AM EDT Office Visit [facility] MED [facility] PEDS [address] [place] [address] Rosendo Garrison MD [address] [place] [address] 06/22/2025 9:00 AM EST Office Visit [facility] MED & PEDS [address] [place] [address] Gema Barber MD [address] [place] [address] documented as of this encounter Visit Diagnoses Diagnosis Type 2 diabetes mellitus without complication, with long-term current use of insulin ([facility]) documented in this encounter Additional Health Concerns Assessment Noted Time PHQ-9 Depression Total Score: 10 023 9:11 AM EST documented as of this encounter Care Teams Triple Valve Mechanic Relationship Specialty Start Date End Date Gema Barber MD [address] [place] [address] PCP - General Family Medicine 05/23/21 documented as of this encounter
--- OUTSIDE RECORDS SUMMARY | 2025-04-26 11:02 | XMS_ITS | Encounter Summary ---
Author Organization [employer] Address [address] [facility] 7t [place] [address] Care Team Providers Care Inventory Taker Name Role Phone Gema Barber MD Primary Care Provider [phone] Reason for Visit * Reason Onset Date Comments Letter for School/Work 10/28/2023 Medication Question 10/28/2023 Encounter Details Date Type Department Care Team ([facility] st Contact Info) Description 10/28/2023 Telephone [facility] MEDICINE [address] [place] [address] Gema Barber MD [address] [place] [address] Letter for School/Work; Medication Question Social History [...] Upcoming Encounters Date Type Department Care Team ([facility] st Contact Info) Description 06/05/2025 10:30 AM EDT Office Visit [facility] MED & PEDS [address] [place] [address] Rosendo Garrison MD [address] [place] [address] 06/22/2025 9:00 AM EST Office Visit [facility] [address] [place] [address] Gema Barber MD [address] [place] [address] documented as of this encounter Visit Diagnoses Not on filedocumented in this encounter Additional Health Concerns Assessment Noted Time PHQ-9 Depression Total Score: 0 10/08/19 8:35 AM EST documented as of this encounter Care Teams Inventory Taker Relationship Specialty Start Date End Date Gema Barber MD [address] [place] [address] PCP - General Family Medicine 05/23/21 documented as of this encounter
--- OUTSIDE RECORDS SUMMARY | 2025-04-26 11:02 | XMS_ITS | Encounter Summary ---
Author Organization [employer] Address [address] [facility] 7t [place] [address] Care Team Providers Care Child Welfare Manager Name Role Phone Gema Barber MD Primary Care Provider Reason for Visit * Reason Comments Med Refill Encounter Details Date Type Department [facility] Description 01/13/2025 Refill [facility]EDS [address] [place], [place] [phone] Gema Barber MD [address] [place] [address] Social History Tobacco Use Types Packs/Day Years [...] Description 06/05/2025 10:30 AM EDT Office Visit [facility] MED & PEDS [address] [place] [address] Rosendo Garrison MD 505 [place] [address] 06/22/2025 9:00 AM EST Office Visit [facility] PEDS [address] [place] [address] Gema Barber MD 505 [place] [address] documented as of this encounter Visit Diagnoses Not on filedocumented in this encounter Additional Health Concerns Assessment Noted Time PHQ-9 Depression Total Score: 0 10/08/19 24 8:35 AM EST documented as of this encounter Care Teams Child Welfare Manager Relationship Specialty Start Date End Date Gema Barber MD [address] [place] [phone] PCP - General Family Medicine 05/23/21 documented as of this encounter
--- OUTSIDE RECORDS SUMMARY | 2025-04-26 11:02 | XMS_ITS | Encounter Summary ---
Author Organization [employer] Address [address] [facility] 7t [place] [address] Care Team Providers Care Sprinkler Irrigation Equipment Mechanic Name Role Phone Gema Barber MD Primary Care Provider [phone] Reason for Visit * Reason Comments Med Change Request Encounter Details Date Type Department Care Team ([facility] Contact Info) Description 01/14/2024 Refill [facility] MED & PEDS [address] [place], [place] [phone] Gema Barber MD [address] [place] [address] Type 2 diabetes mellitus without complication, with long-term current use of insulin ([facility]) Social History Tobacco Use Types [...] Description 06/05/2025 10:30 AM EDT Office Visit [facility] MED & PEDS [address] [place] [address] Rosendo Garrison MD [address] [place] [address] 06/22/2025 9:00 AM EST Office Visit [facility] MED & PEDS [address] [place] [address] Gema Barber MD [address] [place] [address] documented as of this encounter Visit Diagnoses Diagnosis Type 2 diabetes mellitus without complication, with long-term current use of insulin ([facility]) documented in this encounter Additional Health Concerns Assessment Noted Time PHQ-9 Depression Total Score: 0 10/08/19 24 8:35 AM EST documented as of this encounter Care Teams Sprinkler Irrigation Equipment Mechanic Relationship Specialty Start Date End Date Gema Barber MD [address] [place] [address] PCP - General Family Medicine 05/23/21 documented as of this encounter
--- OUTSIDE RECORDS SUMMARY | 2025-04-26 11:02 | XMS_ITS | Encounter Summary ---
Author Organization [employer] Address [address] [facility] [address] [place] [address] Care Team Providers Care Motion Picture Camera Lens Technician Name Role Phone Gema Barber MD Primary Care Provider [phone] Reason for Visit * Reason Onset Date Comments insurance update 07/27/2024 Encounter Details Date Type Department Care Team ([facility] st Contact Info) Description 07/27/2024 Telephone C [facility] ADULT [facility]ENTAL [address] [place] [address] Josemanuel Garrison insurance update Social History Tobacco [...] been scheduled for [facility]. Patient currently [place] [employer] [place] [...] 06/05/2025 10:30 AM EDT Office Visit [facility] MED & PEDS [address] [place] [address] Rosendo Garrison MD [address] [place] [address] 06/22/2025 9:00 AM EST Office Visit [facility] MED & PEDS [address] [place] [address] Gema Barber MD [address] [place] [address] documented as of this encounter Visit Diagnoses Not on filedocumented in this encounter Additional Health Concerns Assessment Noted Time PHQ-9 Depression Total Score: 0 10/08/19 24 8:35 AM EST documented as of this encounter Care Teams Motion Picture Camera Lens Technician Relationship Specialty Start Date End Date Gema Barber MD [address] [place] [address] PCP - General Family Medicine 05/23/21 documented as of this encounter
--- OUTSIDE RECORDS SUMMARY | 2025-04-26 11:02 | XMS_ITS | Encounter Summary ---
Author Organization [employer] Address [address] [facility] 7t [place] [address] Care Team Providers Care Associate Store Manager Name Role Phone Gema Barber MD Primary Care Provider [phone] Reason for Visit * Reason Comments Med Refill Encounter Details Date Type Department Care Team ([facility] st Contact Info) Description 04/24/2025 Refill [facility] CHC MED & PEDS [address] [place], [place] [phone] Rosendo Garrison MD [address] [place] [address] Type 2 diabetes mellitus without complication, with long-term current use of insulin ([facility]) Social History Tobacco Use Types Packs/Day [...] the past 12 months, has t he [employer] gas, oil or water [employer] threatened to shut off services in your [...] 10:30 AM EDT Office Visit [facility] MED & PEDS [address] [place] [address] Rosendo Garrison MD [address] [place] [address] 06/22/2025 9:00 AM EST Office Visit [facility] MED & PEDS [address] [place] [address] Gema Barber MD [address] [place] [address] documented as of this encounter Visit Diagnoses Diagnosis Type 2 diabetes mellitus without complication, with long-term current use of insulin ([facility]) documented in this encounter Additional Health Concerns Assessment Noted Time PHQ-9 Depression Total Score: 0 04/12/20 25 11:22 AM EDT documented as of this encounter Care Teams Associate Store Manager Relationship Specialty Start Date End Date Gema Barbre MD [address] [place] [address] PCP - General Family Medicine 05/23/21 documented as of this encounter
--- OUTSIDE RECORDS SUMMARY | 2025-04-26 11:02 | XMS_ITS | Encounter Summary ---
Author Organization [employer] Address [address] [place] [address] 7[address] [place] [address] Care Team Providers Care Systems Specialist Name Role Phone Gema Barber MD Primary Care Provider [phone] Reason for Visit * Reason Comments Med Change Request Encounter Details Date Type Department Care Team ([facility] Contact Info) Description 10/26/2022 Refill C [facility] MED [facility]EDS [address] [place] [address] Gema Barber MD [address] [place] [address] Type 2 diabetes mellitus without complication, with long-term current use of insulin ([facility]) Social History Tobacco Use Types [...] Upcoming Encounters Date Type Department Care Team ([facility] Contact Info) Description 06/05/2025 10:30 AM EDT Office Visit [facility] MED & PEDS [address] [place] [address] Rosendo Garrison MD [address] [place] [address] 06/22/2025 9:00 AM EST Office Visit [facility] MED & PEDS [address] [place] [address] Gema Barber MD [address] [place] [address] documented as of this encounter Visit Diagnoses Diagnosis Type 2 diabetes mellitus without complication, with long-term current use of insulin ([facility]) documented in this encounter Additional Health Concerns Assessment Noted Time PHQ-9 Depression Total Score: 10 023 9:11 AM EST documented as of this encounter Care Teams Systems Specialist Relationship Specialty Start Date End Date Gema Barber MD [address] [place] [address] PCP - General Family Medicine 05/23/21 documented as of this encounter
--- OUTSIDE RECORDS SUMMARY | 2025-04-26 11:02 | XMS_ITS | Encounter Summary ---
Author Organization [employer] Address [address] [facility] [place] [address] Care Team Providers Care Computer Systems Security Analyst Name Role Phone Gema Barber MD Primary Care Provider [phone] Encounter Details Date Type Department Care Team ([facility] st Contact Info) Description 06/30/2023 Abstract [facility] MEDICINE [address] [place] [address] Barb Meade Social History Tobacco Use Types [...] [facility] [place] [address] [place] [address] Rosendo Garrison MD [address] [place], [place] [phone] 06/22/2025 9:00 AM EST Office Visit [facility] & PEDS [address] [place], [place] [phone] Gema Barber MD [address] [place], [place] [phone] documented as of this encounter Procedures Procedure [...] documented as of this encounter Care Teams Computer Systems Security Analyst Relationship Specialty Start Date End Date Gema Barber MD [address] [place] [address] PCP - General Family Medicine 05/23/21 documented as of this encounter
[2025-04-26 14:18] LABS: MANUAL DIFF FLAG NO
[2025-04-26 14:29] LABS: Hematocrit 43.6 % (42.0-52.0); Hemoglobin 14.2 g/dl (14.0-18.0); Imm Gran Abs Auto 0.03 X10*3/uL (0.00-0.03); Imm Gran Pct Auto 0.6 % (0.0-0.4); Lymphocytes Absolute Auto 1.9 X10*3/uL (1.2-4.9); Mean Corpuscular HGB Conc 32.6 g/dl (31.0-36.0); Mean Corpuscular Hemoglobin 28.9 pg (27.0-33.0); Mean Corpuscular Volume 88.8 fL (80.0-98.0); NRBC Abs Auto 0.000 X10*3/uL (0.0-0.012); NRBC Pct Auto 0.0 /100WBC (0.0-0.2); Platelet Count 283 X10*3/uL (160-400); Red Blood Count 4.91 X10*6/uL (4.60-5.80); White Blood Count 5.3 X10*3/uL (4.8-10.8)
[2025-04-26 14:47] LABS: Alanine Aminotransferase 27 U/L (0-40); Albumin Level 4.4 g/dL (3.5-5.0); Alkaline Phosphatase 59 U/L (39-117); Anion Gap 9 (12-20); Aspartate Amino Transferase 25 U/L (5-37); Blood Urea Nitrogen 16 mg/dL (9-16); Calcium 9.4 mg/dL (8.4-10.2); Carbon Dioxide 28 mmol/L (22-29); Chloride 104 mmol/L (96-108); Cholesterol 139 mg/dL (<200); Estimated Glomerular Filt Rate > 60; HDL Cholesterol 49 mg/dL (>40); Potassium 4.4 mmol/L (3.3-5.1); Sodium 137 mmol/L (135-145); Total Protein 7.1 g/dL (6.5-8.0); Triglycerides 60 mg/dL (<150)
[2025-04-26 15:12] LABS: Folate 10.7 ng/mL (> or = 4.0); Vitamin B12 382 pg/mL (200-900)
== END 2025-04-26 09:30 | disposition home or self-care (01) ==
LOC: HO.CHCLDS 09:29
PROVIDERS: Visit Provider Family Medicine
DX: E11.9 Type 2 diabetes mellitus without complications (principal); Z79.4 Long term (current) use of insulin
CPT/HCPCS: 36415; 80053; 80061; 82607; 82746; 84443; 85025